=== PATIENT | male | born 1960 | race Two or more races ===

== ENCOUNTER 2021-09-30 15:06 | Inpatient (IN) | payer MEDICAID, MEDICARE, OTHER, SELFPAY ==
[~2021-09-30] VITALS: Ht 185.4 cm; Wt 112.1 kg
[2021-09-30 17:43] LABS: BASO % 0.4 % (0.0-1.0); EOS # 1.5 10^3/uL (0.0-0.5); EOS % 16.1 % (0.0-3.0); HEMATOCRIT 35.6 % (42.0-52.0); HEMOGLOBIN 11.6 g/dl (13.5-17.5); LYMPH # 1.1 10^3/uL (1.5-5.0); LYMPH % 11.3 % (24.0-44.0); MEAN CORPUSCULAR HEMOGLOBIN 34.9 pg (27.0-33.0); MEAN CORPUSCULAR HGB CONC 32.6 g/dl (32.0-36.5); MEAN CORPUSCULAR VOLUME 107.2 fl (80.0-96.0); MONO # 0.6 10^3/uL (0.0-0.8); NEUTROPHILS # 6.1 10^3/uL (1.5-8.5); NEUTROPHILS % 65.7 % (36.0-66.0); RED BLOOD COUNT 3.32 10^6/uL (4.30-6.10); WHITE BLOOD COUNT 9.4 10^3/uL (4.0-10.0)
[2021-09-30 18:04] LABS: ALBUMIN 1.7 GM/DL (3.2-5.2); ALT/SGPT 32 U/L (12-78); BILIRUBIN,DIRECT 4.7 MG/DL (0.0-0.2); BILIRUBIN,TOTAL 7.3 MG/DL (0.2-1.0); BLOOD UREA NITROGEN 20 MG/DL (7-18); CALCIUM LEVEL 8.2 MG/DL (8.8-10.2); CARBON DIOXIDE LEVEL 29 MEQ/L (21-32); CHLORIDE LEVEL 103 MEQ/L (98-107); CREATININE FOR GFR 1.07 MG/DL (0.70-1.30); GLOMERULAR FILTRATION RATE > 60.0 (>49); GLUCOSE, FASTING 76 MG/DL (70-100); LIPASE 143 U/L (73-393); POTASSIUM SERUM 4.8 MEQ/L (3.5-5.1); SODIUM LEVEL 137 MEQ/L (136-145); TOTAL PROTEIN 6.6 GM/DL (6.4-8.2)
[2021-09-30 18:11] LABS: PLATELET COUNT, AUTOMATED 60 10^3/uL (150-450)
--- NOTE | 2021-09-30 18:44 | ECGEPIP ---
[facility] - ED Test Date: 2021-09-30 Pat Name: EVANS WEINBERG Department: Room: - Gender: Male Claims Investigator: LAZARA : 1960 Requested By: Delaney Madrid Order Number: [id number] Reading MD: Mundo Kuhn Measurements Intervals Edwards Rate: 112 P: 46 NV: 190 QRS: 33 QRSD: 82 T: 55 QT: 322 QTc: 439 Interpretive Statements Sinus tachycardia with premature supraventricular complexes and with occasional premature ventricular complexes Low voltage QRS throughout Comparison tracing not on file Electronically Signed on 09-30-2021 18:43:37 EST by Mundo Kuhn
[2021-09-30] MEDS ORDERED: MORPHINE 4 MG/ML 1ML VIAL/SYRINGE (J2270) IV ONE (19:30)
[2021-09-30] MEDS ORDERED: ONDANSETRON 4MG/2ML VIAL IV ONE (19:30)
--- NOTE | 2021-09-30 19:46 | REP ---
INDICATION: SOB, wheezes COMPARISON: 12/22/2009 TECHNIQUE: Portable AP view of the chest FINDINGS: The mediastinum and cardiac silhouette are stable and within normal limits for portable technique. The lung rees are clear without acute consolidation, effusion, or pneumothorax. Skeletal structures are intact. IMPRESSION: No acute cardiopulmonary process appreciated. <Electronically signed by Larry Palencia > 09/30/21 [id number]
--- OUTSIDE RECORDS SUMMARY | 2021-09-30 19:51 | CCD ---
Author Author [facility] Organization [facility] Address Unknown Phone Unavailable Support Name Relationship Address Phone SELF EMPLOYEE Next Of Kin [address] [place] [address] SAIDA HOLLOWAY Next Of Kin [address] [place] [address] JUAN WEINBERG Next Of Kin [address] [place] [address] Re-disclosure Warning The records that you are about to access may contain information from federally-assisted alcohol or drug abuse programs. If such information is present, then the following federally mandated warning applies: This information has been disclosed to you from records protected by federal confidentiality rules (42 CFR part 2). The federal rules prohibit you from making any further disclosure of this information unless further disclosure is expressly permitted by the written consent of the person to whom it pertains or as otherwise permitted by 42 CFR part 2. A general authorization for the release of medical or other information is NOT sufficient for this purpose. The Federal rules restrict any use of the information to criminally investigate or prosecute any alcohol or drug abuse patient.The records that you are about to access may contain highly sensitive health information, the redisclosure of which is protected by Article 27-F of the [facility] Public Health law. If you continue you may have access to information: Regarding HIV / AIDS; Provided by facilities licensed or operated by the [facility] Office of Mental Health; or Provided by the [facility] Office for People With Developmental Disabilities. If such information is present, then the following [facility] mandated warning applies: This information has been disclosed to you from confidential records which are protected by state law. State law prohibits you from making any further disclosure of this information without the specific written consent of the person to whom it pertains, or as otherwise permitted by law. Any unauthorized further disclosure in violation of state law may result in a fine or skilled nursing sentence or both. A general authorization for the release of medical or other information is NOT sufficient authorization for further disc losure. Medications No Information Insurance Providers Payer name Policy type / Coverage type Policy ID Covered constitution party ID Covered constitution party's relationship to pimentel Policy Pimentel Plan Information MEDICARE [id number] SP [id number] A [employer] [id number] SP [id number] SELF PAY ONLY SP SELF PAY SP Problems, Conditions, and Diagnoses No Information Surgeries/Procedures No Information Results No Information Social History No Information
[2021-09-30] MEDS ORDERED: ISOVUE-370 76% 100ML VIAL As Ordered ONE (19:57)
[2021-09-30] MEDS ORDERED: HOME MED LIST COMPLETE! XX SCH (20:05)
[2021-09-30 20:09] LABS: INR 1.91; PROTHROMBIN TIME 22.3 SECONDS (12.7-14.5)
[2021-09-30 20:10] LABS: PARTIAL THROMBOPLASTIN TIME 47.4 SECONDS (25.9-37.0)
[2021-09-30 20:17] LABS: RSV AMPLIFICATION NEGATIVE (NEGATIVE)
--- NOTE | 2021-09-30 22:40 | REPVR ---
PROCEDURE INFORMATION: Exam: CT Abdomen And Pelvis With Contrast Exam date and time: 09/30/2021 8:50 PM Age: 61 years old Clinical indication: Bloating; Additional info: ? Ascites TECHNIQUE: Imaging protocol: Computed tomography of the abdomen and pelvis with contrast. Radiation optimization: All CT scans at this facility use at least one of these dose optimization techniques: automated exposure control; mA and/or kV adjustment per patient size (includes targeted exams where dose is matched to clinical indication); or iterative reconstruction. Contrast material: ISOVUE 370; Contrast volume: 100 ml; Contrast route: INTRAVENOUS (IV); COMPARISON: CR PORTABLE CHEST X-RAY 09/30/2021 7:31 PM FINDINGS: Lungs: Small calcified granuloma in the right lower lobe. Lung bases are otherwise clear. Liver: The liver is small with a nodular cirrhotic morphology. No liver masses are seen. Gallbladder and bile ducts: There are small calculi in the gallbladder and cystic duct. No gallbladder wall thickening or biliary duct dilation. Pancreas: Normal. No ductal dilation. Spleen: The spleen is enlarged measuring 19 cm craniocaudally. Adrenal glands: Normal. No mass. Kidneys and ureters: Unremarkable. No calculi or hydronephrosis. Stomach and bowel: There is colonic diverticulosis without evidence of diverticulitis. The small bowel is unremarkable. No bowel obstruction. Appendix: No evidence of appendicitis. Intraperitoneal space: There is a very large volume of abdominal and pelvic ascites. No pneumoperitoneum. No loculated abscess. Mild mesenteric edema. Vasculature: The portal vein is patent and appears mildly dilated. There are extensive gastroesophageal and splenic varices. No aortic aneurysm or dissection. Lymph nodes: Unremarkable. No enlarged lymph nodes. Urinary bladder: Unremarkable as visualized. Reproductive: Unremarkable as visualized. Bones/joints: Unremarkable. No acute fracture. Soft tissues: Extensive subcutaneous edema. IMPRESSION: 1. Cirrhotic liver with extensive varices, splenomegaly, and large volume of abdominal and pelvic ascites. 2. Calculi in the gallbladder and common bile duct. No biliary duct dilation. 3. Colonic diverticulosis without evidence of diverticulitis. Electronically signed by: Dereck Lomas On 09/30/2021 22:40:09 PM
[2021-10-01] VITALS (9 sets, daily range): BP systolic 107–136; BP diastolic 65–93
--- OUTSIDE RECORDS SUMMARY | 2021-10-01 00:35 | CCD ---
Author Author [facility] Organization [facility] Address Unknown Phone Unavailable Support Name Relationship Address Phone SELF EMPLOYEE Next Of Kin [address] [place] [address] SAIDA HOLLOWAY Next Of Kin [address] [place] [address] JUAN WEINBERG Next Of Kin [address] [place], [place] [id number] Re-disclosure Warning The records that you are [...] is protected by Article 27-F of the [facility] Public Health law. If you continue you may have access to information: Regarding HIV / AIDS; Provided by facilities licensed or operated by the [facility] Office of Mental Health; or Provided by the [facility] Office for People With Developmental Disabilities. If such information is present, then the following [facility] mandated warning applies: This information has been [...] law may result in a fine or shelter sentence or both. A general authorization for the release of medical or other information is NOT sufficient authorization for further disc losure. Medications No Information Insurance Providers Payer name Policy type / Coverage type Policy ID Covered constitution party ID Covered constitution party's relationship to pimentel Policy Pimentel Plan Information MEDICARE [id number] A [employer] [id number] SELF PAY ONLY SP SELF PAY SP Problems, Conditions, and Diagnoses No Information Surgeries/Procedures No Information Results No Information Social History No Information
--- NOTE | 2021-10-01 00:57 | REPVR ---
PROCEDURE INFORMATION: Exam: US Abdomen, Limited; Right Upper Quadrant Exam date and time: 10/01/2021 12:45 AM Age: 61 years old Clinical indication: Bloating; Additional info: Ascites TECHNIQUE: Imaging protocol: US abdomen. Real time ultrasound with image documentation. Limited exam focused on the right upper quadrant. COMPARISON: CT ABD/PEL W/IV CONTRAST ONLY 09/30/2021 8:47 PM FINDINGS: Liver: Cirrhotic liver morphology with nodular liver surface. No liver masses are seen. Gallbladder: Small calculi in the gallbladder lumen. No gallbladder wall thickening. Common bile duct: No biliary duct dilation. Pancreas: Visualized pancreas is unremarkable. Right kidney: Unremarkable. No mass. No hydronephrosis. Intraperitoneal space: There is a large volume of abdominal and pelvic ascites. IMPRESSION: 1. Cirrhotic liver morphology. No liver masses are seen. 2. Large volume of abdominal and pelvic ascites. 3. Cholelithiasis. No biliary duct dilation. Electronically signed by: Dereck Lomas On 10/01/2021 00:56:53 AM
--- NOTE | 2021-10-01 01:52 | HPEPDOC ---
General Date of Admission Oct 01, 2021 at 00:28 Date of Service: Sep 30, 2021 Chief Complaint The patient is a 61-year-old male admitted with a reason for visit of Abdominal Ascites,Abdominal Pain,Cirrhosis. History of Present Illness HISTORY OF PRESENT ILLNESS: This is a 61-year-old gentleman who presents to [facility] ER with a chief complaint of abdominal distention x1 month. Patient has a long history of heavy alcohol abuse where he drank 24-30 beers and half a bottle of liquor on a daily basis. He states he quit in 2008 and was sober for 6-1/2 years before he relapsed with about a third of what he drank prior. He still drinks about 12 packs of beer per day up until 1 week ago. He states that he started noticing that his abdomen is getting more extended for the past month and especially has gotten worse in the past week. Around the same time in the past week he also quit snorting cocaine and tobacco smoking. He states that his abdominal distention has made it hard for him to urinate. He also has noticed increased leg swelling up to his knees bilaterally and his weight is increased from 235 pounds to now 310 to 315 pounds within the past month. He denies any fever, chills, nausea, vomiting. He has some cough that is productive of yellow sputum which she has been taking [id number]-jvd-[id number] Mucinex which help clear out his sputum. He he has also experienced orthopnea and paroxysmal nocturnal dyspnea. Denies any recent travel or sick contacts. He states that this is the first time he has had abdominal distention and denies ever having had fluid drained from his abdomen. 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 He was a construction electrician. Quit smoking 1 week ago; prior to that started smoking at age 19 with half a pack per day and quit on and off in between. Denies using marijuana. Stores 3-4 lines of cocaine on a weekly basis or whenever he goes out to green party and drink alcohol. Relapsed alcohol use (extensive history of 24-30 beers per day with half a bottle of liquor prior to 2008. Quit in 2008 for about 6 and half years before relapsing and drink 12 packs of beer per day up until 1 week ago. No pets at home. FAMILY HISTORY: Mom . 78 years old. History of vulvar cancer. Dad . 56 years old. CHF, hypertension type 2 diabetes Sister recently from Alzheimer's. Brother recently from suicide. Major depression. REVIEW OF SYSTEMS: General: Denies fever, shaking chills, unintentional weight loss. There is significant amount of weight gain from 235 pounds to 310 pounds in the past jimmy h HEENT: Denies changes in vision including blurry vision or double vision, or hearing loss nasal congestion or sore throat. Did notice that his skin and eyes appear more yellow yellow. Heart: Denies chest pain or chest pressure or discomfort, or palpitations. Increased lower extremity edema Pulm: Cough with yellow sputum, orthopnea paroxysmal nocturnal dyspnea GI: Denies nausea vomiting diarrhea abdominal pain or bloody stools Extremities/skin: Yellowing of skin and sclera. Denies any pruiritis Psych: Denies sadness or loss of interest in doing things, no thoughts of self- harm or suicidal ideation PHYSICAL EXAM: VS: SEE BELOW GENERAL: The patient is a jaundiced looking gentleman laying in bed, no acute respiratory distress, very protuberant abdomen. AAOx3 NEURO: No focal neurological deficits. Conversational and cooperative on exam. No asterixis on exam HEENT: Head is normocephalic and atraumatic. Extraocular muscles are intact. Pupils are equal, round, and reactive to light and accommodation. Sclera icterus nares appears normal. Moist mucous membranes. CHEST: Gynecomastia noted. PULM: Wheezing is appreciated. No rhonchi, crackles, Rales. CARDIO: Normal S1, S2. No significant murmurs, gallops, rubs or clicks. 2+ pitting edema with dependent edema as well. JVD appreciated. ABDOMEN: Abdomen is very distended with ascites, with shifting dullness nontender, normal bowel sounds. I was unable to appreciate organomegaly due to his abdominal distention. EXTREMITIES/SKIN : There is a tattoo on his right arm. Patient is quite jaundiced. No cyanosis, clubbing, rash, lesions. There are venous stasis ulcers in bilateral shins. Pedal pulses checked with a Doppler machine and present bilaterally. IMAGING: CT abd/pelvis with IV ctx IMPRESSION: 1. Cirrhotic liver with extensive varices, splenomegaly, and large volume of abdominal and pelvic ascites. 2. Calculi in the gallbladder and common bile duct. No biliary duct dilation. 3. Colonic diverticulosis without evidence of diverticulitis Chest radiograph IMPRESSION: No cardiopulm process. ASSESSMENT AND PLAN: This is a 61-year-old gentleman who presents to [facility] ER with abdominal distention x1 month that is progressively gotten worse. He has a history of alcohol abuse with recent relapse. 1. Fluid overload likely 2/2 acute decompensated liver cirrhosis with ascites. 1st time occurence per patient. History of alcohol abuse with recent relapse. Modified child Jono Garcia of class C and 23 points on the meld-Na score with an approximate 14 to 15% estimated 90-day mortality/poor prognosis. Continue 2 g sodium diet with 2 L/day fluid restriction. Will order for a diagnostic and therapeutic paracentesis per IR. In the meantime we will obtain an abdominal ultrasound as well as hepatitis serologies. Paracentesis to obtain a serum albumin ascites albumin score in order for analysis (Gram stain and culture, cell count and differential, albumin and total protein. Will also obtain an echo to rule out cardiac causes of edema. Clinically patient does not display signs of hepatic encephalopathy, AAOX3. 2. Hypoalbuminemia. Consider IV albumin with large volume paracentesis per IR tomorrow. Depending on ascites fluid analysis, consider SBP prophylaxis per am team. 3. Thrombocytopenia in setting of liver cirrhosis. Likely from platelet sequestration of the spleen (splenomegaly on imaging). We will continue to closely monitor. There are no signs of bleeding currently and no indication to transfuse plt currently. 4. Cirrhotic liver with extensive varices. Patient will need follow up with GI as well as PCP after hospital discharge to be screened with EGD. Day team to consider starting him on non selective beta ever such as propranolol. 5. Hypothyroidism. We will continue with home meds 6. Alcohol abuse. Recently quit drinking 1 week ago. Will put on CIWA protocol 7. Hypertension. Med list still not reviewed per pharmacy. Can c/w home med per am team. Current bp is normotensive range. Will hold off on IV albumin and give with large volume paracentesis per day team tomorrow. DVT ppx: TEDS SCDS Home Medications No Active Prescriptions or Reported Meds Allergies Coded Allergies: No Known Allergies (Unverified , 09/30/21) GME ATTESTATION GME ATTESTATION My faculty preceptor for this patient encounter was physically present during the encounter and was fully available. All aspects of the patient interview, examination, medical decision making process, and medical care plan development were reviewed and approved by the faculty preceptor. The faculty preceptor is aware and concurs with the plan as stated in the body of this note and will attest to such by his/her cosignature. ATTENDING NOTE I, Dong Lomeli MD, have independently examined this patient and performed my own physical exam, as well as reviewed the documentation and edited where necessary. I have discussed in detail with the resident the findings and plan of treatment as documented by the residentnd edited their note. I agree with their findings and treatment plan and have edited their documentation. I will continue to follow the patient during this hospital stay. Patient is significant aminal pain without fever or white count. However due to pain and high meld score high HLP score we will start on ceftriaxone 2 g IV daily. Plan for paracentesis today. Will require SBP prophylaxis moving forward, pending ascitic fluid. Given his substantial varices, benefits of SBP ppx likely outweigh risks. Tom Carter DO Oct 01, 2021 01:32 DONG LOMELI MD Oct 01, 2021 06:42
[2021-10-01] MEDS ORDERED: HEPARIN SOD (PORCINE) 5000UNITS/ML 1ML VIAL/SYRINGE SC SCH (06:00)
[2021-10-01] MEDS ORDERED: MORPHINE 4 MG/ML 1ML VIAL/SYRINGE (J2270) IV PRN (06:40)
[2021-10-01] MEDS ORDERED: LORazepam 2 MG TAB PO PRN (06:50)
[2021-10-01] MEDS: THIAMINE 100 MG TAB PO SCH ×2 (08:11→20:45)
[2021-10-01] MEDS: FOLIC ACID 1 MG TAB PO SCH (08:11)
[2021-10-01] MEDS: MULTIVITAMINS/MINERALS THERAP 1 TAB PO SCH (08:11)
[2021-10-01] MEDS: cefTRIAXone SOD 2 GM in D5W MINI-BAG PLUS 50 ML IV SCH (08:12)
[2021-10-01 08:18] LABS: HEMATOCRIT 34.5 % (42.0-52.0); HEMOGLOBIN 11.2 g/dl (13.5-17.5); MEAN CORPUSCULAR HEMOGLOBIN 34.7 pg (27.0-33.0); MEAN CORPUSCULAR HGB CONC 32.5 g/dl (32.0-36.5); MEAN CORPUSCULAR VOLUME 106.8 fl (80.0-96.0); RED BLOOD COUNT 3.23 10^6/uL (4.30-6.10); WHITE BLOOD COUNT 12.2 10^3/uL (4.0-10.0)
[2021-10-01 08:19] LABS: PLATELET COUNT, AUTOMATED 70 10^3/uL (150-450)
[2021-10-01 09:05] LABS: ALBUMIN 1.6 GM/DL (3.2-5.2); ALT/SGPT 31 U/L (12-78); BLOOD UREA NITROGEN 23 MG/DL (7-18); CALCIUM LEVEL 7.7 MG/DL (8.8-10.2); CARBON DIOXIDE LEVEL 26 MEQ/L (21-32); CHLORIDE LEVEL 105 MEQ/L (98-107); CREATININE FOR GFR 0.79 MG/DL (0.70-1.30); GLOMERULAR FILTRATION RATE > 60.0 (>49); GLUCOSE, FASTING 97 MG/DL (70-100); POTASSIUM SERUM 5.6 MEQ/L (3.5-5.1); SODIUM LEVEL 135 MEQ/L (136-145); TOTAL PROTEIN 6.3 GM/DL (6.4-8.2)
[2021-10-01] MEDS ORDERED: INFLUENZA QUADRIVALENT PF VACCINE 0.5ML SYRINGE IM ONE (09:45)
[2021-10-01 11:52] LABS: HEPATITIS B SURFACE ANTIGEN NEGATIVE (NEGATIVE)
[2021-10-01 12:21] LABS: HEPATITIS B CORE ANTIBODY IGM NEGATIVE (NEGATIVE)
[2021-10-01] MEDS: FUROSEMIDE 40MG/4ML VIAL (J1940) IV SCH (12:22)
[2021-10-01 12:24] LABS: HEPATITIS C VIRUS ABY INDEX > 11.0 INDEX (<0.8)
--- NOTE | 2021-10-01 12:49 | IPNPDOC ---
Text Note Date of Service The patient was seen on 10/01/21. NOTE Patient seen this a.m. Has massive ascites with bipedal swelling. Complaining of abdominal discomfort. Patient reports his last alcohol intake was 5 to 6 days ago. He reports that he does not have any withdrawal symptoms if he does not drink. No signs of withdrawal at this time. He is scheduled for paracentesis diagnostic and therapeutic today. Will order for units of 25% albumin to be given after paracentesis. We will also start him on Lasix. Potassium is a little high but that is better will start on spironolactone. Has thrombocytopenia likely due to cirrhosis of liver. Ammonia is elevated however no signs of hepatic encephalopathy. Patient alert oriented x3. VS,Fishbone, I+O VS, Fishbone, I+O Laboratory Tests 09/30/21 17:24 10/01/21 08:07 Vital Signs Date Time Temp Pulse Resp B/P (MAP) Pulse Ox O2 Delivery O2 Flow Rate FiO2 10/01/21 12:25 98.3 120 18 110/86 94 Room Air 10/01/21 04:22 2.0 Yanira Zimmer MD Oct 01, 2021 12:49
--- NOTE | 2021-10-01 15:46 | ECHO ---
ECHOCARDIOGRAM DATE OF PROCEDURE: 10/01/2021 Age: 61 Gender: Male Height: 73 inches Weight: 315 pounds Body mass index: 2.61 m2 PATIENT LOCATION: Inpatient, [address] [place] [address], Room 5131. REFERRING PROVIDER: Tom Carter D.O. INDICATION: Edema MEASUREMENTS: 2D Measurements: RV - 4.4 cm LV - 4.1 cm Septum 1.2 cm Posterior wall 1.2 cm Aortic root 4.0 cm LA - 4.4 cm LVEF 75% Doppler Measurements: AV - 0.9 m/sec LVOT - 0.6 m/sec LVOT diameter 1.9 cm MV-E 40, A 64, EA ratio 0.6 Early mitral deceleration time 145 msec E prime medial 17 A prime medial 23 E prime lateral 13 PV - 0.7 m/sec Pulmonary artery acceleration time 85 msec RVSP - 43 mmHg IVC - 2.4 cm COMMENTS: Sinus tachycardia without intraventricular conduction disturbance. Frequent isolated premature atrial contractions (PACs). Technically very difficult study in light of the patient's body habitus, but some diagnostically useful information was still obtained. Left ventricle appeared to be borderline hypertrophied with hyperkinetic wall motion, but could not identify any clear-cut regional wall motion abnormality for technical reasons. Mildly dilated left atrium with grade 1 left ventricular (LV) diastolic dysfunction, but currently normal mean left atrial pressure. At least mild and possibly moderately dilated right heart chambers with adequate right ventricular free wall motion and Doppler evidence of at least moderate pulmonary hypertension. Dilated inferior vena cava (IVC) with reduced respiratory collapse in keeping with right heart failure. Slightly dilated aortic root and ascending aorta. Details of aortic valve were not well visualized, but there did not appear to be any functional abnormality. Slightly thickened mitral valvular apparatus with adequate leaflet excursion and no posterior systolic buckling. No apparent functional valvula abnormality. The tricuspid valve was not well visualized. Could not detect any intracardiac mass, but as mentioned, technically very difficult study. No pericardial effusion.
--- NOTE | 2021-10-01 16:36 | REP ---
INDICATION: swelling COMPARISON: None. TECHNIQUE: Lanier scale and color Doppler evaluation using linear high frequency transducer. FINDINGS: Ultrasound examination of the right and left lower extremity deep venous structures from the common femoral vein through the popliteal vein demonstrates normal compressibility, flow and wave patterns in response to respiration and augmentation. Evaluation of the bilateral calf veins is incomplete due to subcutaneous edema and technical factors. There is no evidence for deep venous thrombosis. IMPRESSION: No evidence for deep venous thrombosis. <Electronically signed by Larry Palencia > 10/01/21 [id number]
[2021-10-01] MEDS ORDERED: SPIRONOLACTONE 25 MG TAB PO SCH (17:00)
--- NOTE | 2021-10-01 17:09 | REP ---
INDICATION: ascites. COMPARISON: None. TECHNIQUE: The procedure was performed under the direct supervision of Dr. Landa. The risks and benefits of the procedure were explained to the patient and informed consent was obtained. The largest pocket of fluid was localized in the left flank using ultrasound guidance. The skin was prepped and draped in a sterile fashion. 5 mL of 1% lidocaine was used as a local anesthetic. An 8-Macedonian multi side-hole catheter was inserted using trocar technique.[id number] mL of erlinda colored fluid was withdrawn with a sample sent to the lab for analysis. Estimated blood loss: Less than 1 mL The patient tolerated the procedure well and there were no immediate complications. After the appropriate amount of monitored convalescence, the patient was discharged from the department. FINDINGS: None IMPRESSION: Ultrasound-guided paracentesis [id number] mL of erlinda colored fluid. <Electronically signed by Jayme Soler > 10/01/21 2501 <Electronically signed by Loco Landa > 10/01/21 2998
[2021-10-01 17:13] LABS: SPEC. GRAVITY BODY FLUIDS 1.007 (NOT ESTABLISHED)
[2021-10-01 17:37] LABS: SOURCE, BODY FLUID ASCITES
[2021-10-01 17:38] LABS: APPEARANCE, BODY FLUID CLOUDY (CLEAR); ASCITES FL COLOR YELLOW (COLORLESS)
[2021-10-01 18:28] LABS: SOURCE, BODY FLUID ALBUMIN ASCITES; SOURCE, BODY FLUID GLUCOSE ASCITES; SOURCE, BODY FLUID TOT PROTEIN ASCITES; TOTAL PROTEIN, BODY FLUID 0.4 G/DL (NOT ESTABLISHED)
[2021-10-01] MEDS: ACETAMINOPHEN TAB 650MG DOSE (2X325MG) PO PRN (20:45)
[2021-10-02] VITALS (10 sets, daily range): BP systolic 91–129; BP diastolic 53–92
[2021-10-02 06:51] LABS: HEMATOCRIT 33.1 % (42.0-52.0); HEMOGLOBIN 10.5 g/dl (13.5-17.5); MEAN CORPUSCULAR HEMOGLOBIN 34.1 pg (27.0-33.0); MEAN CORPUSCULAR HGB CONC 31.7 g/dl (32.0-36.5); MEAN CORPUSCULAR VOLUME 107.5 fl (80.0-96.0); RED BLOOD COUNT 3.08 10^6/uL (4.30-6.10); WHITE BLOOD COUNT 7.8 10^3/uL (4.0-10.0)
[2021-10-02 07:02] LABS: PLATELET COUNT, AUTOMATED 58 10^3/uL (150-450)
[2021-10-02 07:13] LABS: ALBUMIN 1.7 GM/DL (3.2-5.2); ALT/SGPT 28 U/L (12-78); BILIRUBIN,TOTAL 5.3 MG/DL (0.2-1.0); BLOOD UREA NITROGEN 22 MG/DL (7-18); CALCIUM LEVEL 7.9 MG/DL (8.8-10.2); CARBON DIOXIDE LEVEL 27 MEQ/L (21-32); CHLORIDE LEVEL 105 MEQ/L (98-107); CREATININE FOR GFR 0.61 MG/DL (0.70-1.30); GLOMERULAR FILTRATION RATE > 60.0 (>49); GLUCOSE, FASTING 89 MG/DL (70-100); POTASSIUM SERUM 4.4 MEQ/L (3.5-5.1); SODIUM LEVEL 135 MEQ/L (136-145)
[2021-10-02] MEDS: SPIRONOLACTONE 25 MG TAB PO SCH ×2 (09:00→18:12)
[2021-10-02] MEDS ORDERED: INFLUENZA QUADRIVALENT PF VACCINE 0.5ML SYRINGE IM ONE (09:00)
[2021-10-02] MEDS: cefTRIAXone SOD 2 GM in D5W MINI-BAG PLUS 50 ML IV SCH (09:03)
[2021-10-02] MEDS: MULTIVITAMINS/MINERALS THERAP 1 TAB PO SCH (09:04)
[2021-10-02] MEDS: THIAMINE 100 MG TAB PO SCH ×2 (09:04→20:38)
[2021-10-02] MEDS: FOLIC ACID 1 MG TAB PO SCH (09:04)
[2021-10-02] MEDS: FUROSEMIDE 40MG/4ML VIAL (J1940) IV SCH (09:04)
--- NOTE | 2021-10-02 12:22 | IPNPDOC ---
Subjective Date Seen The patient was seen on 10/02/21. Subjective Chief Complaint/HPI Feels more comfortable today and able to sit up it is food and does not have any trouble breathing. Though he says that his legs are more swollen. His belly is less tight though still very distended. No fever or chills. Alert and oriented. Objective Physical Examination General Exam: Positive: Alert, Cooperative, No Acute Distress Eye Exam: Positive: PERRLA, Conjunctiva & lids normal, Sclera icteric Chest Exam: Positive: Clear to auscultation Heart Exam: Positive: Rate Normal, Regular Rhythm, Normal S1, Normal S2; Negative: Murmurs, Rubs Abdomen Exam: Positive: Normal bowel sounds, Soft, Other (Distended with massive ascites) Extremity Exam: Positive: Edema (4+ bipedal edema) Skin Exam: Positive: Other skin issue (Chronic bilateral venous stasis changes in both the legs) Neuro Exam: Positive: Normal Speech, Strength at 5/5 X4 ext, Normal Tone, Other (No flap) Psych Exam: Positive: Memory Intact, Oriented x 3 Assessment /Plan Assessment This is a 61-year-old alcoholic, substance use ( Cocaine), smoker, with past medical history of hypertension, hypothyroidism, peripheral neuropathy with chronic pain, cirrhosis of liver, erectile dysfunction, male who presented to [facility] ER with a chief complaint of abdominal distention x1 month associated with increasing leg swelling. His weight has increased by 80 Lbs in 1 month. He was admitted for decompensated alcoholic cirrhosis. Decompensated alcoholic cirrhosis with extensive gastroesophageal and splenic varices, thrombocytopenia, coagulopathy, massive ascites Status post large-volume paracentesis with removal of 13.2 L with albumin Continue Lasix and spironolactone Daily weights, 2 g sodium diet, fluid restriction 1.8 L We will give vitamin K to see if that helps with the coagulopathy Spontaneous bacterial peritonitis Acetic fluid with increased WBCs neutrophilic Continue ceftriaxone Elevated ammonia No signs of hepatic encephalopathy at this time We will put on maintenance lactulose Cholestatic jaundice Likely due to cirrhosis of liver No CBD obstruction seen in CT abdomen and pelvis Diverticulosis and cholelithiasis in the gallbladder and cystic duct Seen in CT [place] No acute issues Alcoholic Will watch for alcohol withdrawal Continue CIWA Continue thiamine folate and multivitamin History of hypertension However blood pressure here he is in normal range Patient does not have a PMD and has not been taking any meds at home History of hypothyroid Plan/VTE VTE Prophylaxis Ordered?: Yes VS, I&O, 24H, Fishbone Vital Signs/I&O Vital Signs Date Time Temp Pulse Resp B/P (MAP) Pulse Ox O2 Delivery O2 Flow Rate FiO2 10/02/21 11:55 98.4 104 18 114/68 95 Room Air 10/01/21 04:22 2.0 I&O- Last 24 Hours up to 6 AM 10/02/21 06:00 Intake Total 2200.0 ml Output Total 500 ml Balance 1700.0 ml Laboratory Data 24H LABS Laboratory Tests 2 10/01/21 15:00: Body Fluid Source ASCITES, Body Fluid Color YELLOW, Body Fluid Appearance CLOUDY, Body Fluid Specific [place] 1.007, Body Fluid WBC (Auto) 3129H, Body Fluid RBC (Auto) < 2, Body Fluid Mononuclear Cells % Auto 7.5H, Fluid Polymorphonuclear Cell % Auto 92.5H, Body Fluid Glucose Source ASCITES, Body Fluid Glucose 91, Body Fluid Protein Source ASCITES, Body Fluid Total Protein 0.4, Body Fluid Albumin Source ASCITES, Body Fluid Albumin 0.0 10/01/21 16:49: Bedside Glucose (Misc Panel) 102 10/01/21 20:23: Bedside Glucose (Misc Panel) 99 10/02/21 06:27: Nucleated Red Blood Cells % (auto) 0.0, Immature Platelet Fraction 4.5, Anion Gap 3L, Glomerular Filtration Rate > 60.0, Calcium Level 7.9L, Total Bilirubin 5.3H, Aspartate Amino Transf (AST/SGOT) 47H, Alanine Aminotransferase (ALT/SGPT) 28, Alkaline Phosphatase 123H, Total Protein 6.0L, Albumin 1.7L, Albumin/Globulin Ratio 0.4 10/02/21 11:56: Bedside Glucose (Misc Panel) 104 CBC/BMP Laboratory Tests 10/02/21 06:27 Microbiology Microbiology 10/01/21 Gram Stain - Final, Resulted 10/01/21 Body Fluid Culture, Resulted Pending Yanira Zimmer MD Oct 02, 2021 12:22
[2021-10-02] MEDS: LACTULOSE 20 GM/30 ML SYRUP UD PO SCH ×2 (14:30→20:38)
[2021-10-02] MEDS ORDERED: FUROSEMIDE 40MG/4ML VIAL (J1940) IV SCH (17:00)
[2021-10-03 06:00] VITALS: BP 109/61
[2021-10-03 06:14] LABS: HEMATOCRIT 29.4 % (42.0-52.0); HEMOGLOBIN 9.4 g/dl (13.5-17.5); MEAN CORPUSCULAR HEMOGLOBIN 34.1 pg (27.0-33.0); MEAN CORPUSCULAR VOLUME 106.5 fl (80.0-96.0); RED BLOOD COUNT 2.76 10^6/uL (4.30-6.10); WHITE BLOOD COUNT 4.7 10^3/uL (4.0-10.0)
[2021-10-03 06:15] LABS: PLATELET COUNT, AUTOMATED 50 10^3/uL (150-450)
[2021-10-03 06:40] VITALS: BP 109/61
[2021-10-03 07:35] LABS: ALBUMIN 1.9 GM/DL (3.2-5.2); ALT/SGPT 26 U/L (12-78); BILIRUBIN,TOTAL 3.8 MG/DL (0.2-1.0); BLOOD UREA NITROGEN 16 MG/DL (7-18); CALCIUM LEVEL 7.6 MG/DL (8.8-10.2); CARBON DIOXIDE LEVEL 32 MEQ/L (21-32); CHLORIDE LEVEL 101 MEQ/L (98-107); FERRITIN 208 NG/ML (26-388); GLOMERULAR FILTRATION RATE > 60.0 (>49); GLUCOSE, FASTING 111 MG/DL (70-100); IRON (FE) 29 UG/DL (65-175); PERCENT SATURATION 23.8 % (19.7-50.0); POTASSIUM SERUM 3.4 MEQ/L (3.5-5.1); SODIUM LEVEL 137 MEQ/L (136-145); TOTAL IRON BINDING CAPACITY 122 UG/DL (250-450); TOTAL PROTEIN 5.5 GM/DL (6.4-8.2)
[2021-10-03] MEDS: LACTULOSE 20 GM/30 ML SYRUP UD PO SCH ×2 (08:11→21:06)
[2021-10-03] MEDS: cefTRIAXone SOD 2 GM in D5W MINI-BAG PLUS 50 ML IV SCH (08:11)
[2021-10-03] MEDS: FUROSEMIDE 40 MG TAB PO SCH ×2 (08:11→17:10)
[2021-10-03] MEDS: SPIRONOLACTONE 25 MG TAB PO SCH ×2 (08:11→17:10)
[2021-10-03] MEDS: MULTIVITAMINS/MINERALS THERAP 1 TAB PO SCH (08:11)
[2021-10-03] MEDS: FOLIC ACID 1 MG TAB PO SCH (08:11)
[2021-10-03] MEDS: THIAMINE 100 MG TAB PO SCH ×2 (08:11→21:06)
[2021-10-03] MEDS: ACETAMINOPHEN TAB 650MG DOSE (2X325MG) PO PRN ×2 (08:12→21:06)
[2021-10-03 08:40] LABS: VITAMIN B12 LEVEL 1628 PG/ML
[2021-10-03 08:41] LABS: FOLATE 6.4 NG/ML
[2021-10-03] MEDS ORDERED: oxyCODONE 5MG TAB PO ONE (10:20)
--- NOTE | 2021-10-03 12:47 | IPNPDOC ---
Subjective Date Seen The patient was seen on 10/03/21. Subjective Chief Complaint/HPI Continues to have severe abdominal distention with severe stretching and discomfort. Reports that he has not been able to sleep at all last night has been tossing and turning all night long. He feels that his knees and thighs are little less swollen. However both of his legs are still extremely swollen and are leaking fluids Objective Physical Examination General Exam: Positive: Alert, Cooperative, No Acute Distress Eye Exam: Positive: PERRLA, Conjunctiva & lids normal, Sclera icteric Chest Exam: Positive: Clear to auscultation Heart Exam: Positive: Rate Normal, Regular Rhythm, Normal S1, Normal S2; Negative: Murmurs, Rubs Abdomen Exam: Positive: Normal bowel sounds, Soft, Other (Distended with mass yanni ascites) Extremity Exam: Positive: Edema (4+ bipedal edema) Skin Exam: Positive: Other skin issue (Chronic bilateral venous stasis changes in both the legs) Neuro Exam: Positive: Normal Speech, Strength at 5/5 X4 ext, Normal Tone, Other (No flap) Psych Exam: Positive: Memory Intact, Oriented x 3 Assessment /Plan Assessment This is a 61-year-old alcoholic, substance use ( Cocaine), smoker, with past medical history of hypertension, hypothyroidism, peripheral neuropathy with chronic pain, cirrhosis of liver, erectile dysfunction, male who presented to [facility] ER with a chief complaint of abdominal distention x1 month associated with increasing leg swelling. His weight has increased by 80 Lbs in 1 month. He was admitted for decompensated alcoholic cirrhosis. Decompensated alcoholic cirrhosis with extensive gastroesophageal and splenic varices, thrombocytopenia, coagulopathy, massive ascites Status post large-volume paracentesis with removal of 13.2 L with albumin Continue Lasix and spironolactone Daily weights, 2 g sodium diet, fluid restriction 1.8 L We will give vitamin K to see if that helps with the coagulopathy We will give some oxycodone as needed to help with pain and discomfort of the abdomen. Spontaneous bacterial peritonitis Ascitic fluid with increased WBCs neutrophilic Fluid cultures has been negative however this was sent after patient was already started on antibiotic Continue ceftriaxone Elevated ammonia No signs of hepatic encephalopathy at this time On maintenance lactulose Having 2-3 bowel movements a day Cholestatic jaundice Likely due to cirrhosis of liver No CBD obstruction seen in CT abdomen and pelvis Diverticulosis and cholelithiasis in the gallbladder and cystic duct Seen in CT [place] No acute issues Alcoholic Will watch for alcohol withdrawal Continue CIWA Continue thiamine folate and multivitamin History of hypertension However blood pressure here he is in normal range Patient does not have a PMD and has not been taking any meds at home History of hypothyroid Plan/VTE VTE Prophylaxis Ordered?: Yes VS, I&O, 24H, Fishbone Vital Signs/I&O Vital Signs Date Time Temp Pulse Resp B/P (MAP) Pulse Ox O2 Delivery O2 Flow Rate FiO2 10/03/21 10:31 18 Nasal Cannula 10/03/21 06:40 112 109/61 10/03/21 06:00 98.3 96 2.0 I&O- Last 24 Hours up to 6 AM 10/03/21 05:59 Intake Total 800.0 ml Output Total 1800 ml Balance -1000.0 ml Laboratory Data 24H LABS Laboratory Tests 2 10/02/21 17:02: Bedside Glucose (Misc Panel) 116H 10/02/21 20:50: Bedside Glucose (Misc Panel) 108 10/03/21 05:28: Nucleated Red Blood Cells % (auto) 0.0, Anion Gap 4L, Glomerular Filtration Rate > 60.0, Calcium Level 7.6L, Iron Level 29L, Total Iron Binding Capacity 122L, Transferrin % Saturation 23.8, Ferritin 208, Total Bilirubin 3.8H, Aspartate Amino Transf (AST/SGOT) 44H, Alanine Aminotransferase (ALT/SGPT) 26, Alkaline Phosphatase 123H, Ammonia 93H, Total Protein 5.5L, Albumin 1.9L, Albumin/Globulin Ratio 0.5, Vitamin B12 Level 1628, Folate 6.4 10/03/21 11:49: Bedside Glucose (Misc Panel) 99 CBC/BMP Laboratory Tests 10/03/21 05:28 Microbiology Microbiology 10/01/21 Gram Stain - Final, Complete 10/01/21 Body Fluid Culture - Final, Complete Yanira Zimmer MD Oct 03, 2021 12:47
[2021-10-03] MEDS: PHYTONADIONE 5 MG TAB PO SCH (13:15)
[2021-10-03 14:00] VITALS: BP_SYST 112; BP_SYST 132; BP_DIAS 62; BP_DIAS 77
--- NOTE | 2021-10-03 17:56 | REP ---
INDICATION: massive ascites. COMPARISON: None. TECHNIQUE: The procedure was performed under the direct supervision of Dr. Landa. The risks and benefits of the procedure were explained to the patient and informed consent was obtained. The largest pocket of fluid was localized in the left flank using ultrasound guidance. The skin was prepped and draped in a sterile fashion. 6 mL of 1% lidocaine was used as a local anesthetic. An 8-Irish multi side-hole catheter was inserted using trocar technique.19667 mL of yellow fluid was withdrawn and discarded. Estimated blood loss: Less than 1 mL The patient tolerated the procedure well and there were no immediate complications. After the appropriate amount of monitored convalescence, the patient was discharged from the department. FINDINGS: None IMPRESSION: Ultrasound-guided paracentesis [id number] mL of yellow fluid. <Electronically signed by Jayme Soler > 10/03/21 1701 <Electronically signed by Loco Landa > 10/03/21 [id number]
[2021-10-03 20:00] VITALS: BP 112/58
--- NOTE | 2021-10-03 21:54 | ECGEPIP ---
[facility] Test Date: 2021-10-02 Pat Name: EVANS WEINBERG Department: Room: [place] [address] Gender: Male [employer] Vehicle [employer]: [birth year] : 1960 Requested By: Yanira Zimmer Order Number: [id number] Reading MD: Willy Don Measurements Intervals [place] Rate: 108 P: 83 LA: 196 QRS: 33 QRSD: 84 T: 55 QT: 338 QTc: 452 Interpretive Statements Sinus tachycardia with premature supraventricular complexes Low voltage QRS Cannot rule out Anterior infarct , age undetermined vs poor R wave pregression Last tracing on 09/30/21 at 17:24 No remarkable changes Electronically Signed on 10-03-2021 21:53:52 EST by Willy Don
[2021-10-03 22:00] VITALS: BP 112/58
[2021-10-04] VITALS (13 sets, daily range): BP systolic 113–131; BP diastolic 68–78
[2021-10-04 06:00] LABS: HEMATOCRIT 31.1 % (42.0-52.0); HEMOGLOBIN 10.2 g/dl (13.5-17.5); MEAN CORPUSCULAR HEMOGLOBIN 34.6 pg (27.0-33.0); MEAN CORPUSCULAR HGB CONC 32.8 g/dl (32.0-36.5); MEAN CORPUSCULAR VOLUME 105.4 fl (80.0-96.0); RED BLOOD COUNT 2.95 10^6/uL (4.30-6.10)
[2021-10-04 06:04] LABS: PLATELET COUNT, AUTOMATED 51 10^3/uL (150-450)
[2021-10-04 06:21] LABS: ALT/SGPT 28 U/L (12-78); BILIRUBIN,TOTAL 3.8 MG/DL (0.2-1.0); BLOOD UREA NITROGEN 15 MG/DL (7-18); CALCIUM LEVEL 7.8 MG/DL (8.8-10.2); CARBON DIOXIDE LEVEL 32 MEQ/L (21-32); CHLORIDE LEVEL 100 MEQ/L (98-107); CREATININE FOR GFR 0.57 MG/DL (0.70-1.30); GLOMERULAR FILTRATION RATE > 60.0 (>49); GLUCOSE, FASTING 88 MG/DL (70-100); POTASSIUM SERUM 3.5 MEQ/L (3.5-5.1); SODIUM LEVEL 136 MEQ/L (136-145); TOTAL PROTEIN 5.9 GM/DL (6.4-8.2)
[2021-10-04] MEDS: FOLIC ACID 1 MG TAB PO SCH (08:20)
[2021-10-04] MEDS: LACTULOSE 20 GM/30 ML SYRUP UD PO SCH ×2 (08:20→20:29)
[2021-10-04] MEDS: cefTRIAXone SOD 2 GM in D5W MINI-BAG PLUS 50 ML IV SCH (08:20)
[2021-10-04] MEDS: SPIRONOLACTONE 25 MG TAB PO SCH ×2 (08:20→17:05)
[2021-10-04] MEDS: MULTIVITAMINS/MINERALS THERAP 1 TAB PO SCH (08:21)
[2021-10-04] MEDS: FUROSEMIDE 40 MG TAB PO SCH (08:21)
[2021-10-04] MEDS: PHYTONADIONE 5 MG TAB PO SCH (08:21)
--- NOTE | 2021-10-04 12:55 | IPNPDOC ---
Subjective Date Seen The patient was seen on 10/04/21. Subjective Chief Complaint/HPI StopPatient had a second paracentesis on 10/03/2021 with removal of greater than 10 L of fluid this morning he is belly is comfortable and he does not feel the pressure tach much. He says his thighs and knees are softer and is able to bend his knees. He still has a lot of swelling in his legs and there is leakage of fluid from his legs. Objective Physical Examination General Exam: Positive: Alert, Cooperative, No Acute Distress Eye Exam: Positive: PERRLA, Conjunctiva & lids normal, Sclera icteric Chest Exam: Positive: Clear to auscultation Heart Exam: Positive: Rate Normal, Regular Rhythm, Normal S1, Normal S2; Negative: Murmurs, Rubs Abdomen Exam: Positive: Normal bowel sounds, Soft, Other (Distended with massive ascites) Extremity Exam: Positive: Edema (4+ bipedal edema) Skin Exam: Positive: Other skin issue (Chronic bilateral venous stasis changes in both the legs) Neuro Exam: Positive: Normal Speech, Strength at 5/5 X4 ext, Normal Tone, Other (No flap) Psych Exam: Positive: Memory Intact, Oriented x 3 Assessment /Plan Assessment This is a 61-year-old alcoholic, substance use ( Cocaine), smoker, with past medical history of hypertension, hypothyroidism, peripheral neuropathy with chronic pain, cirrhosis of liver, erectile dysfunction, male who presented to [facility] ER with a chief complaint of abdominal distention x1 month associated with increasing leg swelling. His weight has increased by 80 Lbs in 1 month. He was admitted for decompensated alcoholic cirrhosis. Decompensated alcoholic cirrhosis with extensive gastroesophageal and splenic varices, thrombocytopenia, coagulopathy, massive ascites Status post large-volume paracentesis with removal of 13.2 L with albumin on 10/01/2021, second paracentesis on 10/03/2021 with removal of 10.5 L again with albumin. Continue Lasix and spironolactone Daily weights, 2 g sodium diet, fluid restriction 1.8 L We will give vitamin K to see if that helps with the coagulopathy Spontaneous bacterial peritonitis Ascitic fluid with increased WBCs neutrophilic Fluid cultures has been negative however this was sent after patient was already started on antibiotic Continue ceftriaxone Elevated ammonia No signs of hepatic encephalopathy at this time On maintenance lactulose Having 2-3 bowel movements a day Cholestatic jaundice Likely due to cirrhosis of liver No CBD obstruction seen in CT abdomen and pelvis Hepatitis C infection Patient will need to follow-up with the ID as an outpatient for treatment. Diverticulosis and cholelithiasis in the gallbladder and cystic duct Seen in CT [place] No acute issues Alcoholic Continue thiamine folate and multivitamin History of hypertension Blood pressure has been normal in the hospital History of hypothyroid Plan/VTE VTE Prophylaxis Ordered?: Yes VS, I&O, 24H, Fishbone Vital Signs/I&O Vital Signs Date Time Temp Pulse Resp B/P (MAP) Pulse Ox O2 Delivery O2 Flow Rate FiO2 10/04/21 08:32 98.7 95 17 128/73 Room Air 10/04/21 07:20 100 10/04/21 06:00 2.0 I&O- Last 24 Hours up to 6 AM 10/04/21 06:00 Intake Total 730.0 ml Output Total 1070 ml Balance -340.0 ml Laboratory Data 24H LABS Laboratory Tests 2 10/03/21 17:39: Bedside Glucose (Misc Panel) 111 10/03/21 21:41: Bedside Glucose (Misc Panel) 95 10/04/21 05:22: Nucleated Red Blood Cells % (auto) 0.5H, Immature Platelet Fraction 3.6, Anion Gap 4L, Glomerular Filtration Rate > 60.0, Calcium Level 7.8L, Total Bilirubin 3.8H, Aspartate Amino Transf (AST/SGOT) 45H, Alanine Aminotransferase (ALT/SGPT) 28, Alkaline Phosphatase 126H, Total Protein 5.9L, Albumin 2.0L, Albumin/Globulin Ratio 0.5 10/04/21 11:19: Bedside Glucose (Misc Panel) 110 CBC/BMP Laboratory Tests 10/04/21 05:22 Microbiology Microbiology 10/01/21 Gram Stain - Final, Complete 10/01/21 Body Fluid Culture - Final, Complete Yanira Zimmer MD Oct 04, 2021 12:55
[2021-10-04] MEDS: FUROSEMIDE 40MG/4ML VIAL (J1940) IV SCH (17:05)
[2021-10-05 06:00] VITALS: BP 113/52
[2021-10-05 07:23] LABS: HEMATOCRIT 31.3 % (42.0-52.0); HEMOGLOBIN 10.4 g/dl (13.5-17.5); MEAN CORPUSCULAR HEMOGLOBIN 34.3 pg (27.0-33.0); MEAN CORPUSCULAR HGB CONC 33.2 g/dl (32.0-36.5); MEAN CORPUSCULAR VOLUME 103.3 fl (80.0-96.0); RED BLOOD COUNT 3.03 10^6/uL (4.30-6.10); WHITE BLOOD COUNT 4.5 10^3/uL (4.0-10.0)
[2021-10-05 07:25] LABS: PLATELET COUNT, AUTOMATED 46 10^3/uL (150-450)
[2021-10-05 07:36] LABS: INR 2.03; PROTHROMBIN TIME 23.3 SECONDS (12.7-14.5)
[2021-10-05 07:37] LABS: PARTIAL THROMBOPLASTIN TIME 48.9 SECONDS (25.9-37.0)
[2021-10-05 07:47] LABS: ALBUMIN 2.2 GM/DL (3.2-5.2); ALT/SGPT 26 U/L (12-78); BLOOD UREA NITROGEN 13 MG/DL (7-18); CALCIUM LEVEL 7.7 MG/DL (8.8-10.2); CARBON DIOXIDE LEVEL 32 MEQ/L (21-32); CHLORIDE LEVEL 100 MEQ/L (98-107); CREATININE FOR GFR 0.53 MG/DL (0.70-1.30); GLOMERULAR FILTRATION RATE > 60.0 (>49); GLUCOSE, FASTING 77 MG/DL (70-100); POTASSIUM SERUM 3.3 MEQ/L (3.5-5.1); SODIUM LEVEL 138 MEQ/L (136-145); TOTAL PROTEIN 5.8 GM/DL (6.4-8.2)
[2021-10-05] MEDS: FUROSEMIDE 40MG/4ML VIAL (J1940) IV SCH ×3 (08:58→20:15)
[2021-10-05] MEDS: cefTRIAXone SOD 2 GM in D5W MINI-BAG PLUS 50 ML IV SCH (08:58)
[2021-10-05] MEDS: LACTULOSE 20 GM/30 ML SYRUP UD PO SCH ×2 (08:58→20:15)
[2021-10-05] MEDS: SPIRONOLACTONE 50 MG TAB PO SCH ×2 (08:59→17:13)
[2021-10-05] MEDS: PHYTONADIONE 5 MG TAB PO SCH (08:59)
[2021-10-05] MEDS: FOLIC ACID 1 MG TAB PO SCH (08:59)
[2021-10-05] MEDS: MULTIVITAMINS/MINERALS THERAP 1 TAB PO SCH (08:59)
[2021-10-05] MEDS: ACETAMINOPHEN TAB 650MG DOSE (2X325MG) PO PRN (09:00)
[2021-10-05] MEDS ORDERED: oxyCODONE 5MG TAB PO PRN (12:45)
--- NOTE | 2021-10-05 12:46 | IPNPDOC ---
Subjective Date Seen The patient was seen on 10/05/21. Subjective Chief Complaint/HPI Continues to have massive fluid overload with seepage of fluid from the legs though less and also fluid leaking from the paracentesis spot. I have updated his regarding patient's condition. Continues to have severe abdominal pain and discomfort from the distension. Objective Physical Examination General Exam: Positive: Alert, Cooperative, No Acute Distress Eye Exam: Positive: PERRLA, Conjunctiva & lids normal, Sclera icteric Chest Exam: Positive: Clear to auscultation Heart Exam: Positive: Rate Normal, Regular Rhythm, Normal S1, Normal S2; Negative: Murmurs, Rubs Abdomen Exam: Positive: Normal bowel sounds, Soft, Other (Distended with massive ascites) Extremity Exam: Positive: Edema (4+ bipedal edema) Skin Exam: Positive: Other skin issue (Chronic bilateral venous stasis changes in both the legs) Neuro Exam: Positive: Normal Speech, Strength at 5/5 X4 ext, Normal Tone, Other (No flap) Psych Exam: Positive: Memory Intact, Oriented x 3 Assessment /Plan Assessment This is a 61-year-old alcoholic, substance use ( Cocaine), smoker, with past medical history of hypertension, hypothyroidism, peripheral neuropathy with chronic pain, cirrhosis of liver, erectile dysfunction, male who presented to [facility] ER with a chief complaint of abdominal distention x1 month associated with increasing leg swelling. His weight has increased by 80 Lbs in 1 month. He was admitted for decompensated alcoholic cirrhosis. Decompensated alcoholic cirrhosis with extensive gastroesophageal and splenic varices, thrombocytopenia, coagulopathy, massive ascites Status post large-volume paracentesis with removal of 13.2 L with albumin on 10/01/2021, second paracentesis on 10/03/2021 with removal of 10.5 L again with albumin. Continue Lasix and spironolactone Daily weights, 2 g sodium diet, fluid restriction 1.8 L INR elevated at 2.0 Spontaneous bacterial peritonitis Ascitic fluid with increased WBCs neutrophilic Fluid cultures has been negative however this was sent after patient was already started on antibiotic Continue ceftriaxone x 7 days. then will start rifaximin. Elevated ammonia No signs of hepatic encephalopathy at this time On maintenance lactulose Aim 2 bowel movements a day Cholestatic jaundice Likely due to cirrhosis of liver No CBD obstruction seen in CT abdomen and pelvis Hepatitis C infection Patient will need to follow-up with the ID as an outpatient for treatment. Diverticulosis and cholelithiasis in the gallbladder and cystic duct Seen in CT [place] No acute issues Alcoholic Continue thiamine folate and multivitamin History of hypertension Blood pressure has been normal in the hospital History of hypothyroid will check TSH. Plan/VTE VTE Prophylaxis Ordered?: Yes VS, I&O, 24H, Fishbone Vital Signs/I&O Vital Signs Date Time Temp Pulse Resp B/P (MAP) Pulse Ox O2 Delivery O2 Flow Rate FiO2 10/05/21 06:00 97 113/52 10/05/21 06:00 98.2 20 95 Room Air 10/04/21 14:00 2.0 I&O- Last 24 Hours up to 6 AM 10/05/21 06:00 Intake Total 2730.0 ml Output Total 1300 ml Balance 1430.0 ml Laboratory Data 24H LABS Laboratory Tests 2 10/04/21 11:19: Bedside Glucose (Misc Panel) 110 10/04/21 16:37: Bedside Glucose (Misc Panel) 102 10/04/21 20:59: Bedside Glucose (Misc Panel) 113 10/05/21 06:31: Nucleated Red Blood Cells % (auto) 0.0, Immature Platelet Fraction 4.1, Prothrombin Time 23.3H, Prothromb Time International Ratio 2.03, Activated Partial Thromboplast Time 48.9H, Anion Gap 6L, Glomerular Filtration Rate > 60.0, Calcium Level 7.7L, Total Bilirubin 4.0H, Aspartate Amino Transf (AST/SGOT) 43H, Alanine Aminotransferase (ALT/SGPT) 26, Alkaline Phosphatase 128H, Ammonia 81H, Total Protein 5.8L, Albumin 2.2L, Albumin/Globulin Ratio 0.6, Thyroid Stimulating Hormone (TSH) 27.300H CBC/BMP Laboratory Tests 10/05/21 06:31 Microbiology Microbiology 10/01/21 Gram Stain - Final, Complete 10/01/21 Body Fluid Culture - Final, Complete Yanira Zimmer MD Oct 05, 2021 08:00
[2021-10-05 14:00] VITALS: BP 102/52
[2021-10-05] MEDS: LEVOTHYROXINE 25MCG TABLET (0.025MG) PO SCH (15:03)
[2021-10-05] MEDS: POTASSIUM CHLORIDE 10MEQ SR TABLET PO SCH (20:15)
[2021-10-05 22:00] VITALS: BP 126/81
[2021-10-05] MEDS: diphenhydrAMINE 25MG CAP PO PRN (23:25)
[2021-10-06] VITALS (13 sets, daily range): BP systolic 80–140; BP diastolic 48–83
[2021-10-06] MEDS: FUROSEMIDE 40MG/4ML VIAL (J1940) IV SCH ×2 (03:06→08:58)
[2021-10-06] MEDS: LEVOTHYROXINE 25MCG TABLET (0.025MG) PO SCH (05:27)
[2021-10-06 08:03] LABS: HEMATOCRIT 30.8 % (42.0-52.0); HEMOGLOBIN 10.3 g/dl (13.5-17.5); MEAN CORPUSCULAR HEMOGLOBIN 34.2 pg (27.0-33.0); MEAN CORPUSCULAR HGB CONC 33.4 g/dl (32.0-36.5); MEAN CORPUSCULAR VOLUME 102.3 fl (80.0-96.0); PLATELET COUNT, AUTOMATED 50 10^3/uL (150-450); RED BLOOD COUNT 3.01 10^6/uL (4.30-6.10); WHITE BLOOD COUNT 4.3 10^3/uL (4.0-10.0)
[2021-10-06 08:27] LABS: ALT/SGPT 28 U/L (12-78); BILIRUBIN,TOTAL 3.5 MG/DL (0.2-1.0); BLOOD UREA NITROGEN 12 MG/DL (7-18); CALCIUM LEVEL 7.5 MG/DL (8.8-10.2); CARBON DIOXIDE LEVEL 34 MEQ/L (21-32); CHLORIDE LEVEL 99 MEQ/L (98-107); CREATININE FOR GFR 0.55 MG/DL (0.70-1.30); GLOMERULAR FILTRATION RATE > 60.0 (>49); GLUCOSE, FASTING 84 MG/DL (70-100); POTASSIUM SERUM 3.1 MEQ/L (3.5-5.1); SODIUM LEVEL 137 MEQ/L (136-145); TOTAL PROTEIN 5.5 GM/DL (6.4-8.2)
[2021-10-06] MEDS: MULTIVITAMINS/MINERALS THERAP 1 TAB PO SCH (08:58)
[2021-10-06] MEDS: cefTRIAXone SOD 2 GM in D5W MINI-BAG PLUS 50 ML IV SCH (08:58)
[2021-10-06] MEDS: SPIRONOLACTONE 50 MG TAB PO SCH ×2 (09:00→16:41)
[2021-10-06] MEDS: POTASSIUM CHLORIDE 10MEQ SR TABLET PO SCH ×2 (09:00→20:05)
[2021-10-06] MEDS: PHYTONADIONE 5 MG TAB PO SCH (09:00)
[2021-10-06] MEDS: FOLIC ACID 1 MG TAB PO SCH (09:00)
[2021-10-06] MEDS: LACTULOSE 20 GM/30 ML SYRUP UD PO SCH ×2 (09:11→20:04)
[2021-10-06] MEDS ORDERED: POTASSIUM CHLORIDE 10MEQ SR TABLET PO ONE (12:05)
--- NOTE | 2021-10-06 12:09 | IPNPDOC ---
Subjective Date Seen The patient was seen on 10/06/21. Subjective Chief Complaint/HPI Was hypotensive this am with dizziness and tachycardia. Stopped lasix injection. Started on albumin again and will put on lasix infusion. Still leaking fluid from the paracentesis site. Fluid seepage from vitaliy legs is getting better. Oren reports his leg swelling has gone down and he is able to walk better. Objective Physical Examination General Exam: Positive: Alert, Cooperative, No Acute Distress Eye Exam: Positive: PERRLA, Conjunctiva & lids normal, Sclera icteric Chest Exam: Positive: Clear to auscultation Heart Exam: Positive: Rate Normal, Regular Rhythm, Normal S1, Normal S2; Negative: Murmurs, Rubs Abdomen Exam: Positive: Normal bowel sounds, Soft, Other (Distended with massive ascites) Extremity Exam: Positive: Edema (4+ bipedal edema) Skin Exam: Positive: Other skin issue (Chronic bilateral venous stasis changes in both the legs) Neuro Exam: Positive: Normal Speech, Strength at 5/5 X4 ext, Normal Tone, Other (No flap) Psych Exam: Positive: Memory Intact, Oriented x 3 Assessment /Plan Assessment This is a 61-year-old alcoholic, substance use ( Cocaine), smoker, with past medical history of hypertension, hypothyroidism, peripheral neuropathy with chronic pain, cirrhosis of liver, erectile dysfunction, male who presented to [facility] ER with a chief complaint of abdominal distention x1 month associated with increasing leg swelling. His weight has increased by 80 Lbs in 1 month. He was admitted for decompensated alcoholic cirrhosis. Decompensated alcoholic cirrhosis with extensive gastroesophageal and splenic varices, thrombocytopenia, coagulopathy, massive ascites Status post large-volume paracentesis with removal of 13.2 L with albumin on 10/01/2021, second paracentesis on 10/03/2021 with removal of 10.5 L again with albumin. Continue Lasix gtt and spironolactone with albumin Daily weights, 2 g sodium diet, fluid restriction 1.8 L INR elevated at 2.0 Spontaneous bacterial peritonitis Ascitic fluid with increased WBCs neutrophilic Fluid cultures has been negative however this was sent after patient was already started on antibiotic Continue ceftriaxone x 7 days. then will start rifaximin. Elevated ammonia No signs of hepatic encephalopathy at this time On maintenance lactulose Aim 2 bowel movements a day Cholestatic jaundice Likely due to cirrhosis of liver No CBD obstruction seen in CT abdomen and pelvis Hepatitis C infection Patient will need to follow-up with the ID as an outpatient for treatment. Diverticulosis and cholelithiasis in the gallbladder and cystic duct Seen in CT [place] No acute issues Alcoholic Continue thiamine folate and multivitamin History of hypertension Blood pressure has been normal in the hospital Hypothyroid TSH elevated started on synthroid 25 mcg. Plan/VTE VTE Prophylaxis Ordered?: Yes VS, I&O, 24H, Fishbone Vital Signs/I&O Vital Signs Date Time Temp Pulse Resp B/P (MAP) Pulse Ox O2 Delivery O2 Flow Rate FiO2 10/06/21 10:51 98.7 72 20 112/77 97 Nasal Cannula 2.0 I&O- Last 24 Hours up to 6 AM 10/06/21 05:59 Intake Total 1800 ml Output Total 2675 ml Balance -875 ml Laboratory Data 24H LABS Laboratory Tests 2 10/05/21 12:07: Bedside Glucose (Misc Panel) 122H 10/05/21 17:06: Bedside Glucose (Misc Panel) 94 10/05/21 20:29: Bedside Glucose (Misc Panel) 95 10/06/21 06:22: Bedside Glucose (Misc Panel) 85 10/06/21 07:34: Nucleated Red Blood Cells % (auto) 0.0, Immature Platelet Fraction 4.4, Anion Gap 4L, Glomerular Filtration Rate > 60.0, Calcium Level 7.5L, Total Bilirubin 3.5H, Aspartate Amino Transf (AST/SGOT) 44H, Alanine Aminotransferase (ALT/SGPT) 28, Alkaline Phosphatase 156H, Total Protein 5.5L, Albumin 2.0L, Albumin/Globulin Ratio 0.6 10/06/21 11:19: Bedside Glucose (Misc Panel) 102 CBC/BMP Laboratory Tests 10/06/21 07:34 Microbiology Microbiology 10/01/21 Gram Stain - Final, Complete 10/01/21 Body Fluid Culture - Final, Complete Yanira Zimmer MD Oct 06, 2021 12:09
[2021-10-06] MEDS ORDERED: FUROSEMIDE injection 250 MG in D5W 225 ML IV SCH (14:00)
[2021-10-06] MEDS: diphenhydrAMINE 25MG CAP PO PRN (23:10)
[2021-10-07] VITALS (8 sets, daily range): BP systolic 102–127; BP diastolic 56–78
[2021-10-07] MEDS: LEVOTHYROXINE 25MCG TABLET (0.025MG) PO SCH (05:48)
[2021-10-07 06:58] LABS: HEMATOCRIT 32.3 % (42.0-52.0); HEMOGLOBIN 10.9 g/dl (13.5-17.5); MEAN CORPUSCULAR HEMOGLOBIN 34.5 pg (27.0-33.0); MEAN CORPUSCULAR HGB CONC 33.7 g/dl (32.0-36.5); MEAN CORPUSCULAR VOLUME 102.2 fl (80.0-96.0); RED BLOOD COUNT 3.16 10^6/uL (4.30-6.10); WHITE BLOOD COUNT 5.1 10^3/uL (4.0-10.0)
[2021-10-07 07:02] LABS: PLATELET COUNT, AUTOMATED 53 10^3/uL (150-450)
[2021-10-07 07:25] LABS: ALBUMIN 2.8 GM/DL (3.2-5.2); ALT/SGPT 32 U/L (12-78); BILIRUBIN,TOTAL 4.2 MG/DL (0.2-1.0); BLOOD UREA NITROGEN 9 MG/DL (7-18); CALCIUM LEVEL 7.8 MG/DL (8.8-10.2); CARBON DIOXIDE LEVEL 36 MEQ/L (21-32); CHLORIDE LEVEL 96 MEQ/L (98-107); CREATININE FOR GFR 0.57 MG/DL (0.70-1.30); GLOMERULAR FILTRATION RATE > 60.0 (>49); GLUCOSE, FASTING 84 MG/DL (70-100); SODIUM LEVEL 136 MEQ/L (136-145); TOTAL PROTEIN 6.5 GM/DL (6.4-8.2)
[2021-10-07] MEDS: cefTRIAXone SOD 2 GM in D5W MINI-BAG PLUS 50 ML IV SCH (08:21)
[2021-10-07] MEDS: MULTIVITAMINS/MINERALS THERAP 1 TAB PO SCH (08:21)
[2021-10-07] MEDS: PHYTONADIONE 5 MG TAB PO SCH (08:21)
[2021-10-07] MEDS: LACTULOSE 20 GM/30 ML SYRUP UD PO SCH ×2 (08:21→20:22)
[2021-10-07] MEDS: FOLIC ACID 1 MG TAB PO SCH (08:21)
[2021-10-07] MEDS: rifAXIMin 550 MG TAB (XIFAXAN) PO SCH ×2 (08:21→20:22)
[2021-10-07] MEDS: SPIRONOLACTONE 50 MG TAB PO SCH ×2 (08:21→16:32)
[2021-10-07] MEDS: POTASSIUM CHLORIDE 10MEQ SR TABLET PO SCH ×3 (08:22→20:22)
[2021-10-07 09:51] LABS: MAGNESIUM LEVEL 1.5 MG/DL (1.8-2.4)
[2021-10-07] MEDS: TORSEMIDE 20 MG TAB PO SCH (10:13)
[2021-10-07] MEDS: KCL 10MEQ/100ML SWI (KRUN) 10 MEQ in IV 1 EA IV SCH (10:14)
[2021-10-07] MEDS ORDERED: POTASSIUM CHLORIDE 10MEQ SR TABLET PO ONE (11:45)
[2021-10-07] MEDS: MAG SULF 1GM/100ML (MAG RUN) 1 GM in IV 1 EA IV SCH ×2 (12:05→12:06)
--- NOTE | 2021-10-07 12:26 | IPNPDOC ---
Subjective Date Seen The patient was seen on 10/07/21. Subjective Chief Complaint/HPI Feeling better complaining of insomnia. He is leg swelling is going down though it is still seeping fluids. His abdominal swelling is still huge. We will try to get a paracentesis tomorrow with albumin. No fever or chills. Objective Physical Examination General Exam: Positive: Alert, Cooperative, No Acute Distress Eye Exam: Positive: PERRLA, Conjunctiva & lids normal, Sclera icteric Chest Exam: Positive: Clear to auscultation Heart Exam: Positive: Rate Normal, Regular Rhythm, Normal S1, Normal S2; Negative: Murmurs, Rubs Abdomen Exam: Positive: Normal bowel sounds, Soft, Other (Distended with mass yanni ascites) Extremity Exam: Positive: Edema (4+ bipedal edema) Skin Exam: Positive: Other skin issue (Chronic bilateral venous stasis changes in both the legs) Neuro Exam: Positive: Normal Speech, Strength at 5/5 X4 ext, Normal Tone, Other (No flap) Psych Exam: Positive: Memory Intact, Oriented x 3 Assessment /Plan Assessment This is a 61-year-old alcoholic, substance use ( Cocaine), smoker, with past medical history of hypertension, hypothyroidism, peripheral neuropathy with chronic pain, cirrhosis of liver, erectile dysfunction, male who presented to [facility] ER with a chief complaint of abdominal distention x1 month associated with increasing leg swelling. His weight has increased by 80 Lbs in 1 month. He was admitted for decompensated alcoholic cirrhosis. Decompensated alcoholic cirrhosis with extensive gastroesophageal and splenic varices, thrombocytopenia, coagulopathy, massive ascites Status post large-volume paracentesis with removal of 13.2 L with albumin on 10/01/2021, second paracentesis on 10/03/2021 with removal of 10.5 L again with albumin. Daily weights, 2 g sodium diet, fluid restriction 1.8 L INR elevated at 2.0 Continue torsemide and spironolactone. Have scheduled for another paracentesis on 10/08/2021 will need to be given albumin along with it. Spontaneous bacterial peritonitis Ascitic fluid with increased WBCs neutrophilic Fluid cultures has been negative however this was sent after patient was already started on antibiotic Continue ceftriaxone x 7 days. then will start rifaximin. Hypokalemia and hypomagnesemia Being replaced IV and p.o. Elevated ammonia No signs of hepatic encephalopathy at this time On maintenance lactulose Aim 2 bowel movements a day Cholestatic jaundice Likely due to cirrhosis of liver No CBD obstruction seen in CT abdomen and pelvis Hepatitis C infection Patient will need to follow-up with the ID as an outpatient for treatment. Diverticulosis and cholelithiasis in the gallbladder and cystic duct Seen in [facility] No acute issues Alcoholic Continue thiamine folate and multivitamin History of hypertension Blood pressure has been normal in the hospital Hypothyroid TSH elevated started on synthroid 25 mcg. Plan/VTE VTE Prophylaxis Ordered?: Yes VS, I&O, 24H, Fishbone Vital Signs/I&O Vital Signs Date Time Temp Pulse Resp B/P (MAP) Pulse Ox O2 Delivery O2 Flow Rate FiO2 10/07/21 06:11 98.1 88 19 116/64 98 Room Air 10/06/21 17:06 2.0 I&O- Last 24 Hours up to 6 AM 10/07/21 06:00 Intake Total 1560.0 ml Output Total 2650 ml Balance -1090.0 ml Laboratory Data 24H LABS Laboratory Tests 2 10/06/21 15:59: Bedside Glucose (Misc Panel) 152H 10/07/21 06:28: Nucleated Red Blood Cells % (auto) 0.0, Anion Gap 4L, Glomerular Filtration Rate > 60.0, Calcium Level 7.8L, Magnesium Level 1.5L, Total Bilirubin 4.2H, Aspartate Amino Transf (AST/SGOT) 56H, Alanine Aminotransferase (ALT/SGPT) 32, Alkaline Phosphatase 168H, Total Protein 6.5, Albumin 2.8#L, Albumin/Globulin R atio 0.8 10/07/21 12:04: Bedside Glucose (Misc Panel) 121H CBC/BMP Laboratory Tests 10/07/21 06:28 Microbiology Microbiology 10/01/21 Gram Stain - Final, Complete 10/01/21 Body Fluid Culture - Final, Complete Yanira Zimmer MD Oct 07, 2021 12:26
[2021-10-08] VITALS (12 sets, daily range): BP systolic 106–126; BP diastolic 64–78
[2021-10-08] MEDS: diphenhydrAMINE 25MG CAP PO PRN ×2 (02:45→21:10)
[2021-10-08] MEDS: LEVOTHYROXINE 25MCG TABLET (0.025MG) PO SCH (05:18)
[2021-10-08 06:34] LABS: INR 1.89; PROTHROMBIN TIME 22.1 SECONDS (12.7-14.5)
[2021-10-08 06:35] LABS: PARTIAL THROMBOPLASTIN TIME 47.2 SECONDS (25.9-37.0)
[2021-10-08] MEDS: POTASSIUM CHLORIDE 10MEQ SR TABLET PO SCH ×3 (09:17→21:10)
[2021-10-08] MEDS: SPIRONOLACTONE 50 MG TAB PO SCH ×2 (09:17→17:43)
[2021-10-08] MEDS: TORSEMIDE 20 MG TAB PO SCH (09:17)
[2021-10-08] MEDS: LACTULOSE 20 GM/30 ML SYRUP UD PO SCH ×2 (09:17→21:10)
[2021-10-08] MEDS: MULTIVITAMINS/MINERALS THERAP 1 TAB PO SCH (09:17)
[2021-10-08] MEDS: FOLIC ACID 1 MG TAB PO SCH (09:17)
[2021-10-08] MEDS: rifAXIMin 550 MG TAB (XIFAXAN) PO SCH ×2 (09:17→21:10)
[2021-10-08 10:07] LABS: HEMATOCRIT 30.6 % (42.0-52.0); HEMOGLOBIN 10.2 g/dl (13.5-17.5); MEAN CORPUSCULAR HEMOGLOBIN 34.2 pg (27.0-33.0); MEAN CORPUSCULAR HGB CONC 33.3 g/dl (32.0-36.5); MEAN CORPUSCULAR VOLUME 102.7 fl (80.0-96.0); RED BLOOD COUNT 2.98 10^6/uL (4.30-6.10); WHITE BLOOD COUNT 5.1 10^3/uL (4.0-10.0)
[2021-10-08 10:08] LABS: PLATELET COUNT, AUTOMATED 50 10^3/uL (150-450)
[2021-10-08 10:28] LABS: BLOOD UREA NITROGEN 11 MG/DL (7-18); CALCIUM LEVEL 7.9 MG/DL (8.8-10.2); CARBON DIOXIDE LEVEL 32 MEQ/L (21-32); CHLORIDE LEVEL 99 MEQ/L (98-107); CREATININE FOR GFR 0.63 MG/DL (0.70-1.30); GLOMERULAR FILTRATION RATE > 60.0 (>49); GLUCOSE, FASTING 123 MG/DL (70-100); POTASSIUM SERUM 3.4 MEQ/L (3.5-5.1); SODIUM LEVEL 137 MEQ/L (136-145)
--- NOTE | 2021-10-08 17:36 | REP ---
INDICATION: massive ascites The patient has a history of ascites COMPARISON: None. TECHNIQUE: The procedure was performed by LIAT Hernández, under the direct supervision of Dr. Lanier The risks and benefits of the procedure were explained to the patient and an informed consent was obtained both verbally and written. Directly prior to the start of the procedure a formal time-out was completed in the procedure room. The largest pocket of fluid was localized in the left flank using ultrasound guidance. The skin was prepped and draped in a sterile fashion. Ten ML of 1% lidocaine 10 mg/ml was used as a local anesthetic. An 8-Canadian multi side-hole catheter was inserted using trocar technique. FINDINGS: The largest pocket of fluid was localized in the left flank using ultrasound guidance. Skin was prepped and draped in sterile fashion. 10 mL of 1% lidocaine was utilized for local anesthetic. An 8 Canadian multi side hole catheter was inserted using trocar technique. 4900 mL of yellow fluid were aspirated. The catheter was removed and a sterile dressing was placed over the insertion site. The patient tolerated the procedure well and there were no immediate complications. After the appropriate amount of monitored convalescence, the patient was discharged from the department. IMPRESSION: Technically successful paracentesis yielding 4900 mL of yellow fluid. <Electronically signed by Cristina Marcano > 10/08/21 [id number] <Electronically signed by Larry Lanier > 10/08/21 [id number]
--- NOTE | 2021-10-08 19:47 | IPNPDOC ---
Text Note Date of Service The patient was seen on 10/08/21. NOTE Subjective: -Had paracentesis today, removed 4900cc -Reports that leg swelling is going down -No fever or chills. Objective: Vitals: see below General: Alert, Cooperative, No Acute Distress Eyes: PERRLA, Conjunctiva & lids normal, has scleral icterus Chest: Clear to auscultation bilaterally Heart: Rate Normal, Regular Rhythm, Normal S1, Normal S2, no noted m/r/g Abdomen: Large, normal bowel sounds, soft Extremities: 4+ Edema with some seepage Skin: with chronic bilateral venous stasis changes in both the legs Neuro: Normal Speech, Strength at 5/5 X4 ext, Normal Tone Psych: Memory Intact, Oriented x 3 Labs: Reviewed Assessment: 61-year-old M with alcoholic and HCV cirrhosis, PSUD with cocaine, smoker, history of hypertension, hypothyroidism, peripheral neuropathy with chronic pain who presented with mirna anasarca and abdominal distention and was admitted for decompensated alcoholic cirrhosis. Decompensated alcoholic cirrhosis with extensive gastroesophageal and splenic varices, thrombocytopenia, coagulopathy, massive ascites -Status post large-volume paracentesis with removal of 13.2 L with albumin on 10/01/2021, second paracentesis on 10/03/2021 with removal of 10.5 L again with albumin. And another one today. -Daily weights, 2 g sodium diet, fluid restriction 1.8 L -INR elevated -Continue torsemide and spironolactone. -s/p albumin today Spontaneous bacterial peritonitis -Ascitic fluid with increased WBCs neutrophilic -Fluid cultures has been negative however this was sent after patient was already started on antibiotic -s/p ceftriaxone x 7 days. -continue on rifaximin BID Hypokalemia and hypomagnesemia -Being replaced daily Elevated ammonia -No signs of hepatic encephalopathy at this time -On maintenance lactulose -Aim 2 bowel movements a day Cholestatic jaundice -Likely due to cirrhosis of liver -No CBD obstruction seen in CT abdomen and pelvis Hepatitis C infection -Patient will need to follow-up with the ID as an outpatient for treatment. Diverticulosis and cholelithiasis in the gallbladder and cystic duct -Seen in [facility] -No acute issues Alcoholic -Continue thiamine folate and multivitamin History of hypertension -Blood pressure has been normal in the hospital Hypothyroid -TSH was elevated -Continue synthroid 25 mcg. VS,Fishbone, I+O VS, Fishbone, I+O Laboratory Tests 10/08/21 09:50 Vital Signs Date Time Temp Pulse Resp B/P (MAP) Pulse Ox O2 Delivery O2 Flow Rate FiO2 10/08/21 18:46 98.1 96 18 122/78 96 Room Air 10/06/21 17:06 2.0 I&O- Last 24 Hours up to 6 AM 10/08/21 06:00 Intake Total 1910.0 ml Output Total 2400 ml Balance -490.0 ml ANTHONY BREAUX MD Oct 08, 2021 19:46
[2021-10-09] MEDS: LEVOTHYROXINE 25MCG TABLET (0.025MG) PO SCH (05:17)
[2021-10-09 05:18] VITALS: BP 114/70
[2021-10-09 06:10] LABS: HEMATOCRIT 29.5 % (42.0-52.0); HEMOGLOBIN 9.7 g/dl (13.5-17.5); MEAN CORPUSCULAR HEMOGLOBIN 34.2 pg (27.0-33.0); MEAN CORPUSCULAR HGB CONC 32.9 g/dl (32.0-36.5); MEAN CORPUSCULAR VOLUME 103.9 fl (80.0-96.0); RED BLOOD COUNT 2.84 10^6/uL (4.30-6.10); WHITE BLOOD COUNT 4.2 10^3/uL (4.0-10.0)
[2021-10-09 06:14] LABS: PLATELET COUNT, AUTOMATED 47 10^3/uL (150-450)
[2021-10-09 06:30] LABS: BLOOD UREA NITROGEN 8 MG/DL (7-18); CALCIUM LEVEL 7.7 MG/DL (8.8-10.2); CARBON DIOXIDE LEVEL 33 MEQ/L (21-32); CHLORIDE LEVEL 100 MEQ/L (98-107); CREATININE FOR GFR 0.63 MG/DL (0.70-1.30); GLOMERULAR FILTRATION RATE > 60.0 (>49); GLUCOSE, FASTING 98 MG/DL (70-100); MAGNESIUM LEVEL 1.9 MG/DL (1.8-2.4); POTASSIUM SERUM 3.5 MEQ/L (3.5-5.1); SODIUM LEVEL 138 MEQ/L (136-145)
[2021-10-09] MEDS ORDERED: TORS20TA2 PO (09:25)
[2021-10-09] MEDS ORDERED: VITMTA PO (09:25)
[2021-10-09] MEDS ORDERED: LACT20EL PO (09:25)
[2021-10-09] MEDS ORDERED: XIFA550T PO (09:25)
[2021-10-09] MEDS ORDERED: FOLI1TAB11 PO (09:25)
[2021-10-09] MEDS ORDERED: ALDA50TA2 PO (09:25)
[2021-10-09] MEDS ORDERED: POTA1TAB14 PO (09:25)
[2021-10-09] MEDS ORDERED: LEVO25TA5 PO (09:25)
[2021-10-09] MEDS: FOLIC ACID 1 MG TAB PO SCH (09:36)
[2021-10-09] MEDS: MULTIVITAMINS/MINERALS THERAP 1 TAB PO SCH (09:36)
[2021-10-09] MEDS: SPIRONOLACTONE 50 MG TAB PO SCH (09:36)
[2021-10-09] MEDS: rifAXIMin 550 MG TAB (XIFAXAN) PO SCH (09:36)
[2021-10-09] MEDS: LACTULOSE 20 GM/30 ML SYRUP UD PO SCH (09:36)
[2021-10-09] MEDS: TORSEMIDE 20 MG TAB PO SCH (09:36)
[2021-10-09] MEDS: POTASSIUM CHLORIDE 10MEQ SR TABLET PO SCH (09:37)
--- NOTE | 2021-10-09 09:45 | DS.PDOC ---
Discharge Summary General Date of Admission Oct 01, 2021 at 00:28 Date of Discharge 10/09/2021 Attending Physician: ANTHONY BREAUX MD Discharge Summary PROCEDURES PERFORMED DURING STAY: Paracentesis x 3 during this admission ADMITTING DIAGNOSES: Decompensated liver cirrhosis DISCHARGE DIAGNOSES: Decompensated alcoholic cirrhosis with extensive gastroesophageal and splenic varices, thrombocytopenia, coagulopathy, massive ascites Hypertension Hypothyroidism Alcoholic and HCV cirrhosis PSUD with cocaine smoker Chronic peripheral neuropathy with chronic pain Hypoalbuminemia SBP Hypokalemia Hypomagnesemia Hyperammonemia COMPLICATIONS/CHIEF COMPLAINT: Abdominal Ascites,Abdominal Pain,Cirrhosis. HISTORY OF PRESENT ILLNESS: 61-year-old gentleman who presented to [facility] ER with a chief complaint of abdominal distention x1 month. Patient has a long history of heavy alcohol abuse where he drank 24-30 beers and half a bottle of liquor on a daily basis. He reported having quit in 2008 and was sober for 6-1/2 years before he relapsed with about a third of what he drank prior. He still drinks about 12 packs of beer per day up until 1 week prior to admission. He reported that he started noticing that his abdomen was getting more extended for about a month and had especially gotten worse in the week prior to presentation. Around the same time, he also quit snorting cocaine and tobacco smoking. He reported that his abdominal distention has made it hard for him to urinate. He also noticed increased leg swelling up to his knees bilaterally and his weight is increased from 235 pounds to now 310 to 315 pounds within the past month. He denied any fever, chills, nausea, vomiting. HOSPITAL COURSE: He presented hemodynamically stable and was found to be in decompensated liver cirrhosis with mirna anasarca and abdominal distention and was admitted for de compensated alcoholic cirrhosis. His course in summary included treatment of decompensated liver cirrhosis with volume optimization with introduction of cirrhosis meds, paracentesis, treatment of SBP, electrolyte abnormalities, limited cirrhosis workup that revealed HCV infection that is untreated. The course per issue was as follows: Decompensated alcoholic cirrhosis with extensive gastroesophageal and splenic varices, thrombocytopenia, coagulopathy, massive ascites -Status post large-volume paracentesis with removal of 13.2 L with albumin on 10/01/2021, second paracentesis on 10/03/2021 with removal of 10.5 L again with albumin. And another one on 10/08 for ~5L -2 g sodium diet, fluid restriction 1.8 L -INR elevated -Was started on torsemide and spironolactone. -s/p albumin Spontaneous bacterial peritonitis -Ascitic fluid with increased WBCs neutrophilic -Fluid cultures were negative however they was sent after patient was already started on antibiotic -s/p ceftriaxone x 7 days. -continue on rifaximin BID Hypokalemia and hypomagnesemia -Being replaced daily Elevated ammonia -No signs of hepatic encephalopathy at this time -Started on maintenance lactulose -Aim 2 bowel movements a day Cholestatic jaundice -Likely due to cirrhosis of liver -No CBD obstruction seen in CT abdomen and pelvis Hepatitis C infection -Patient will need to follow-up with the ID as an outpatient for treatment. Diverticulosis and cholelithiasis in the gallbladder and cystic duct -Seen in [facility] -No acute issues currently History of alcohol use disorder -Continue thiamine folate and multivitamin History of hypertension -Blood pressure has been normal in the hospital Hypothyroid -TSH was elevated -Continue synthroid 25 mcg. DISCHARGE MEDICATIONS: Please see below. ALLERGIES: Please see below. PHYSICAL EXAMINATION ON DISCHARGE: VITAL SIGNS: Please see below. General: Alert, Cooperative, No Acute Distress Eyes: PERRLA, Conjunctiva & lids normal, has scleral icterus Chest: Clear to auscultation bilaterally Heart: Rate Normal, Regular Rhythm, Normal S1, Normal S2, no noted m/r/g Abdomen: Large, normal bowel sounds, soft Extremities: 4+ Edema with some seepage Skin: with chronic bilateral venous stasis changes in both the legs Neuro: Normal Speech, Strength at 5/5 X4 ext, Normal Tone Psych: Memory Intact, Oriented x 3 LABORATORY DATA: Please see below. IMAGING: CT A/P: Lungs: Small calcified granuloma in the right lower lobe. Lung bases are otherwise clear. Liver: The liver is small with a nodular cirrhotic morphology. No liver masses are seen. Gallbladder and bile ducts: There are small calculi in the gallbladder and cystic duct. No gallbladder wall thickening or biliary duct dilation. Pancreas: Normal. No ductal dilation. Spleen: The spleen is enlarged measuring 19 cm craniocaudally. Adrenal glands: Normal. No mass. Kidneys and ureters: Unremarkable. No calculi or hydronephrosis. Stomach and bowel: There is colonic diverticulosis without evidence of diverticulitis. The small bowel is unremarkable. No bowel obstruction. Appendix: No evidence of appendicitis. Intraperitoneal space: There is a very large volume of abdominal and pelvic ascites. No pneumoperitoneum. No loculated abscess. Mild mesenteric edema. Vasculature: The portal vein is patent and appears mildly dilated. There are extensive gastroesophageal and splenic varices. No aortic aneurysm or dissection. Lymph nodes: Unremarkable. No enlarged lymph nodes. Urinary bladder: Unremarkable as visualized. Reproductive: Unremarkable as visualized. Bones/joints: Unremarkable. No acute fracture. Soft tissues: Extensive subcutaneous edema. IMPRESSION: 1. Cirrhotic liver with extensive varices, splenomegaly, and large volume of abdominal and pelvic ascites. 2. Calculi in the gallbladder and common bile duct. No biliary duct dilation. 3. Colonic diverticulosis without evidence of diverticulitis. CXR: The mediastinum and cardiac silhouette are stable and within normal limits for portable technique. The lung rees are clear without acute consolidation, effusion, or pneumothorax. Skeletal structures are intact. IMPRESSION: No acute cardiopulmonary process appreciated. Liver US: Liver: Cirrhotic liver morphology with nodular liver surface. No liver masses are seen. Gallbladder: Small calculi in the gallbladder lumen. No gallbladder wall thickening. Common bile duct: No biliary duct dilation. Pancreas: Visualized pancreas is unremarkable. Right kidney: Unremarkable. No mass. No hydronephrosis. Intraperitoneal space: There is a large volume of abdominal and pelvic ascites. IMPRESSION: 1. Cirrhotic liver morphology. No liver masses are seen. 2. Large volume of abdominal and pelvic ascites. 3. Cholelithiasis. No biliary duct dilation. Bilateral LE doppler venous US: Ultrasound examination of the right and left lower extremity deep venous structures from the common femoral vein through the popliteal vein demonstrates normal compressibility, flow and wave patterns in response to respiration and augmentation. Evaluation of the bilateral calf veins is incomplete due to subcutaneous edema and technical factors. There is no evidence for deep venous thrombosis. IMPRESSION: No evidence for deep venous thrombosis. PROGNOSIS: Fair, high MELD score ACTIVITY: As tolerated DIET: 2g sodium DISCHARGE PLAN: Home with close PCP follow up. ID and GI referral DISPOSITION: Home DISCHARGE INSTRUCTIONS: Home with close PCP follow up. ID and GI referral Refrain from further alcohol consumption as this may result in potential deco mpensation of already severe cirrhosis and potential Please adhere to all your new medications and appointments ITEMS TO FOLLOWUP ON ON OUTPATIENT: Decompensated liver cirrhosis HCV infection DISCHARGE CONDITION: Stable TIME SPENT ON DISCHARGE: 70 minutes. Vital Signs/I&Os Vital Signs Date Time Temp Pulse Resp B/P (MAP) Pulse Ox O2 Delivery O2 Flow Rate FiO2 10/09/21 05:18 99.0 98 18 114/70 (85) 97 Room Air 10/06/21 17:06 2.0 I&O- Last 24 Hours up to 6 AM 10/09/21 06:00 Intake Total 795.0 ml Output Total 7125 ml Balance -6330.0 ml Laboratory Data Labs 24H Laboratory Tests 2 10/08/21 09:50: Nucleated Red Blood Cells % (auto) 0.0, Immature Platelet Fraction 6.4, Anion Gap 6L, Glomerular Filtration Rate > 60.0, Calcium Level 7.9L, Magnesium Level 2.0 10/08/21 11:53: Bedside Glucose (Misc Panel) 116H 10/08/21 16:43: Bedside Glucose (Misc Panel) 98 10/08/21 20:13: Bedside Glucose (Misc Panel) 99 10/09/21 05:23: Nucleated Red Blood Cells % (auto) 0.0, Anion Gap 5L, Glomerular Filtration Rate > 60.0, Calcium Level 7.7L, Magnesium Level 1.9 CBC/BMP Laboratory Tests 10/08/21 09:50 10/09/21 05:23 FSBS Laboratory Tests Test 10/08/21 11:53 10/08/21 16:43 10/08/21 20:13 Range/Units Bedside Glucose (Misc Panel) 116 98 99 80-115 MG/DL Microbiology Microbiology 10/01/21 Gram Stain - Final, Resulted 10/01/21 Body Fluid Culture - Preliminary, Resulted Discharge Medications Scheduled Folic Acid (Folic Acid) 1 Mg Tablet, 1 MG PO DAILY Lactulose (Lactulose) 10 Gm/15 Ml Solution, 15 ML PO BID Levothyroxine Sodium (Levothyroxine Sodium) 25 Mcg Tablet, 25 MCG PO DAILY@06 Multivitamins (Thera M Plus Tablet) 1 Each Tablet, 1 TAB PO DAILY Potassium Chloride (Potassium Chloride) 20 Meq Tablet.er, 1 TAB PO TID Rifaximin (Xifaxan) 550 Mg Tablet, 550 MG PO BID Spironolactone (Aldactone) 50 Mg Tablet, 50 MG PO BID@, Torsemide (Torsemide) 20 Mg Tablet, 40 MG PO DAILY Allergies Coded Allergies: No Known Allergies (Unverified , 09/30/21) ANTHONY BREAUX MD Oct 09, 2021 09:45
== END 2021-10-09 15:50 | disposition home health service (06) | DRG 432 ==
LOC: M ED 15:06 → M ED INP 10-01 00:28 → ENRESERV 10-01 02:06 → M MS5PR 10-01 05:00
PROVIDERS: ADMIT Family Medicine; ATTEND Internal Medicine
PROC: 30233J1 Transfusion of Nonautologous Serum Albumin into Peripheral Vein, Percutaneous Approach (ICD-10-PCS; 2021-10-01)
PROC: 0W9G3ZX Drainage of Peritoneal Cavity, Percutaneous Approach, Diagnostic (ICD-10-PCS; principal; 2021-10-01 16:00)
PROC: 0W9G3ZZ Drainage of Peritoneal Cavity, Percutaneous Approach (ICD-10-PCS; 2021-10-03)
PROC: 0W9G3ZZ Drainage of Peritoneal Cavity, Percutaneous Approach (ICD-10-PCS; 2021-10-08)
DX: K70.31 Alcoholic cirrhosis of liver with ascites (principal); K65.2 Spontaneous bacterial peritonitis; I85.10 Secondary esophageal varices without bleeding; D68.4 Acquired coagulation factor deficiency; F10.288 Alcohol dependence with other alcohol-induced disorder; E88.09 Other disorders of plasma-protein metabolism, not elsewhere classified; D69.59 Other secondary thrombocytopenia; E03.9 Hypothyroidism, unspecified; I10 Essential (primary) hypertension; N52.9 Male erectile dysfunction, unspecified; G62.9 Polyneuropathy, unspecified; Z87.891 Personal history of nicotine dependence; I86.8 Varicose veins of other specified sites; E87.6 Hypokalemia; E83.42 Hypomagnesemia; I87.2 Venous insufficiency (chronic) (peripheral); B19.20 Unspecified viral hepatitis C without hepatic coma; F14.10 Cocaine abuse, uncomplicated

== ENCOUNTER → 2021-10-15 | Outpatient (REF) | payer MEDICARE, MEDICAID ==
[~2021-10-15] MED LIST: ALDA50TA2 PO; FOLI1TAB11 PO; LACT20EL PO; LEVO25TA5 PO; POTA1TAB14 PO; TORS20TA2 PO; VITMTA PO; XIFA550T PO
== END ==
LOC: M SFHCCAPE 10:42
PROVIDERS: ATTEND Physician Assistant
DX: K72.90 Hepatic failure, unspecified without coma (principal); K74.60 Unspecified cirrhosis of liver; B19.20 Unspecified viral hepatitis C without hepatic coma; E03.9 Hypothyroidism, unspecified

== ENCOUNTER → 2022-01-09 | Outpatient (CLI) | payer MEDICARE, MEDICAID | LOC: M CLY 09:38 | PROVIDERS: ATTEND Physician Assistant | DX: K70.31 Alcoholic cirrhosis of liver with ascites (principal) ==

== ENCOUNTER → 2022-01-09 | Outpatient (REF) | payer MEDICARE, MEDICAID ==
[2022-01-09 16:04] LABS: BASO % 0.9 % (0.0-1.0); EOS # 0.2 10^3/uL (0.0-0.5); EOS % 3.9 % (0.0-3.0); HEMATOCRIT 38.8 % (42.0-52.0); HEMOGLOBIN 13.1 g/dl (13.5-17.5); LYMPH # 0.9 10^3/uL (1.5-5.0); MEAN CORPUSCULAR HEMOGLOBIN 33.9 pg (27.0-33.0); MEAN CORPUSCULAR HGB CONC 33.8 g/dl (32.0-36.5); MEAN CORPUSCULAR VOLUME 100.3 fl (80.0-96.0); MONO # 0.5 10^3/uL (0.0-0.8); MONO % 9.9 % (2.0-8.0); NEUTROPHILS % 64.9 % (36.0-66.0); RED BLOOD COUNT 3.87 10^6/uL (4.30-6.10); WHITE BLOOD COUNT 4.6 10^3/uL (4.0-10.0)
[2022-01-09 16:11] LABS: PLATELET COUNT, AUTOMATED 54 10^3/uL (150-450)
[2022-01-09 16:15] LABS: INR 1.44
[2022-01-09 16:37] LABS: ALBUMIN 2.3 GM/DL (3.2-5.2); ALT/SGPT 75 U/L (12-78); BILIRUBIN,DIRECT 3.5 MG/DL (0.0-0.2); BILIRUBIN,TOTAL 6.4 MG/DL (0.2-1.0); BLOOD UREA NITROGEN 14 MG/DL (7-18); CALCIUM LEVEL 8.2 MG/DL (8.8-10.2); CARBON DIOXIDE LEVEL 32 MEQ/L (21-32); CHLORIDE LEVEL 102 MEQ/L (98-107); CREATININE FOR GFR 0.87 MG/DL (0.70-1.30); FREE T4 1.01 NG/DL (0.76-1.46); GLOMERULAR FILTRATION RATE > 60.0 (>49); GLUCOSE, FASTING 141 MG/DL (70-100); POTASSIUM SERUM 4.8 MEQ/L (3.5-5.1); SODIUM LEVEL 134 MEQ/L (136-145); TOTAL PROTEIN 6.5 GM/DL (6.4-8.2)
[2022-01-09 16:38] LABS: TOTAL 25(OH) VITAMIN D 21.2 NG/ML (30.0-100.0); VITAMIN B12 LEVEL 1400 PG/ML
[2022-01-09 16:39] LABS: FOLATE 11.7 NG/ML
[2022-01-09 17:41] LABS: HEMOGLOBIN A1c 4.1 %
== END ==
LOC: M SFHCCLAY 09:31
PROVIDERS: ATTEND Physician Assistant
DX: E03.9 Hypothyroidism, unspecified (principal); K72.90 Hepatic failure, unspecified without coma; Z79.899 Other long term (current) drug therapy

== ENCOUNTER → 2022-01-09 | Outpatient (CLI) | payer MEDICARE, MEDICAID | LOC: M WHC 07:37 | PROVIDERS: ATTEND Physician Assistant | DX: K74.60 Unspecified cirrhosis of liver (principal) ==

== ENCOUNTER → 2022-01-21 | Outpatient (CLI) | payer MEDICARE, MEDICAID ==
[~2022-01-21] MED LIST changes: +CIPR500S PO; +FURO40TA2 PO
[2022-01-21 19:06] LABS: HEPATITIS B SURFACE ANTIBODY NEGATIVE (POSITIVE); HEPATITIS B SURFACE ANTIGEN NEGATIVE (NEGATIVE); HIV 1&2 SCREEN CENTAUR NEGATIVE (NEGATIVE)
[2022-01-24 21:07] LABS: HEPATITIS A IgG TOTAL Negative (Negative); HEPATITIS B CORE ANTIBODY IGG Negative (Negative); HEPATITIS C QUANTITATION 423000 IU/mL (.); HEPATITIS C VIRUS GENOTYPE 1a (.)
== END ==
LOC: M PLALAB 14:38
PROVIDERS: ATTEND Internal Medicine Infectious Disease
DX: B18.2 Chronic viral hepatitis C (principal)

== ENCOUNTER → 2022-02-04 | Outpatient (CLI) | payer MEDICARE, MEDICAID ==
[2022-02-04 16:09] VITALS: BP 118/65
== END ==
LOC: M IRPRO 14:09
PROVIDERS: ATTEND Student in an Organized Health Care Education/Training Program
DX: K70.31 Alcoholic cirrhosis of liver with ascites (principal); D64.9 Anemia, unspecified

== ENCOUNTER → 2022-02-10 | Outpatient (REF) | payer MEDICARE, MEDICAID ==
[2022-02-10 11:28] LABS: BASO # 0.1 10^3/uL (0.0-0.2); BASO % 0.9 % (0.0-1.0); EOS # 0.4 10^3/uL (0.0-0.5); EOS % 7.4 % (0.0-3.0); HEMATOCRIT 35.5 % (42.0-52.0); HEMOGLOBIN 12.3 g/dl (13.5-17.5); LYMPH % 18.7 % (24.0-44.0); MEAN CORPUSCULAR HEMOGLOBIN 35.9 pg (27.0-33.0); MEAN CORPUSCULAR HGB CONC 34.6 g/dl (32.0-36.5); MEAN CORPUSCULAR VOLUME 103.5 fl (80.0-96.0); MONO # 0.7 10^3/uL (0.0-0.8); MONO % 12.5 % (2.0-8.0); NEUTROPHILS # 3.3 10^3/uL (1.5-8.5); NEUTROPHILS % 59.1 % (36.0-66.0); PLATELET COUNT, AUTOMATED 64 10^3/uL (150-450); RED BLOOD COUNT 3.43 10^6/uL (4.30-6.10); WHITE BLOOD COUNT 5.5 10^3/uL (4.0-10.0)
[2022-02-10 11:36] LABS: INR 1.55
[2022-02-10 11:37] LABS: PARTIAL THROMBOPLASTIN TIME 41.9 SECONDS (25.9-37.0)
[2022-02-10 11:53] LABS: ALBUMIN 1.9 GM/DL (3.2-5.2); ALT/SGPT 83 U/L (12-78); BLOOD UREA NITROGEN 20 MG/DL (7-18); CALCIUM LEVEL 7.7 MG/DL (8.8-10.2); CARBON DIOXIDE LEVEL 30 MEQ/L (21-32); CHLORIDE LEVEL 101 MEQ/L (98-107); CREATININE FOR GFR 0.76 MG/DL (0.70-1.30); GLOMERULAR FILTRATION RATE > 60.0 (>49); GLUCOSE, FASTING 88 MG/DL (70-100); POTASSIUM SERUM 4.4 MEQ/L (3.5-5.1); SODIUM LEVEL 133 MEQ/L (136-145); TOTAL PROTEIN 6.1 GM/DL (6.4-8.2)
== END ==
LOC: M LABDRAWC 11:04
PROVIDERS: ATTEND Student in an Organized Health Care Education/Training Program
DX: K74.60 Unspecified cirrhosis of liver (principal)

== ENCOUNTER → 2022-02-21 | Outpatient (CLI) | payer MEDICARE, MEDICAID | LOC: M PLARAD 08:31 | PROVIDERS: ATTEND Physician Assistant | DX: R16.2 Hepatomegaly with splenomegaly, not elsewhere classified (principal); R18.8 Other ascites; I86.8 Varicose veins of other specified sites ==

== ENCOUNTER → 2022-02-26 | Outpatient (CLI) | payer MEDICARE, MEDICAID ==
[2022-02-26 14:38] VITALS: BP 121/60
[2022-02-26 14:48] LABS: ALBUMIN 1.8 GM/DL (3.2-5.2); ALT/SGPT 60 U/L (12-78); BILIRUBIN,DIRECT 7.6 MG/DL (0.0-0.2); BILIRUBIN,TOTAL 9.8 MG/DL (0.2-1.0); ETHYL ALCOHOL (ETHANOL) < 0.003 % (0.000-0.010); TOTAL PROTEIN 6.3 GM/DL (6.4-8.2)
== END ==
LOC: M IRPRO 13:16
PROVIDERS: ATTEND Student in an Organized Health Care Education/Training Program
DX: K70.30 Alcoholic cirrhosis of liver without ascites (principal)

== ENCOUNTER → 2022-03-05 | Outpatient (CLI) | payer MEDICARE, MEDICAID ==
[~2022-03-05] MED LIST changes: +ATIV1TAB7 PO; +HYOS125TA PO; +IBUP1TAB7 PO; +MORP1SOL SL; +POTA10TA17 PO; +SPIR100T3 PO
[2022-03-05 13:04] VITALS: BP 132/74
== END ==
LOC: M IRPRO 12:25
PROVIDERS: ATTEND Student in an Organized Health Care Education/Training Program
DX: K70.31 Alcoholic cirrhosis of liver with ascites (principal)

== ENCOUNTER → 2022-03-12 | Outpatient (CLI) | payer MEDICARE, MEDICAID ==
[~2022-03-12] MED LIST changes: -ATIV1TAB7 PO; -HYOS125TA PO; -IBUP1TAB7 PO; -MORP1SOL SL; -POTA10TA17 PO; -SPIR100T3 PO
[2022-03-12 14:41] VITALS: BP 119/70
== END ==
LOC: M IRPRO 13:00
PROVIDERS: ATTEND Student in an Organized Health Care Education/Training Program
DX: K70.31 Alcoholic cirrhosis of liver with ascites (principal)

== ENCOUNTER → 2022-03-19 | Outpatient (CLI) | payer MEDICARE, MEDICAID ==
[~2022-03-19] MED LIST changes: +SPIR100T3 PO
[2022-03-19 16:25] VITALS: BP 136/75
== END ==
LOC: M IRPRO 14:45
PROVIDERS: ATTEND Student in an Organized Health Care Education/Training Program
DX: K70.31 Alcoholic cirrhosis of liver with ascites (principal)

== ENCOUNTER 2022-03-26 11:28 | Inpatient (IN) | payer MEDICARE, MEDICAID ==
[2022-03-26] VITALS (24 sets, daily range): BP systolic 78–121; BP diastolic 44–76
[~2022-03-26] VITALS: Ht 185.4 cm; Wt 124.7 kg
[2022-03-26 12:03] LABS: VENOUS BASE EXCESS -11.8 (-2.0-2.0); VENOUS HCO3 13.5 MEQ/L (23.0-27.0); VENOUS PARTIAL PRESSURE CO2 29.1 mmHg (38.0-50.0); VENOUS PARTIAL PRESSURE O2 44.7 mmHg (30.0-50.0); VENOUS PH 7.283 UNITS (7.330-7.430); VENOUS STANDARD HCO3 14.8 MEQ/L; VENOUS TOTAL CO2 14.4 MEQ/L (24.0-28.0)
[2022-03-26 12:10] LABS: HEMATOCRIT 31.8 % (42.0-52.0); HEMOGLOBIN 11.3 g/dl (13.5-17.5); MEAN CORPUSCULAR HEMOGLOBIN 36.2 pg (27.0-33.0); MEAN CORPUSCULAR HGB CONC 35.5 g/dl (32.0-36.5); MEAN CORPUSCULAR VOLUME 101.9 fl (80.0-96.0); RED BLOOD COUNT 3.12 10^6/uL (4.30-6.10); WHITE BLOOD COUNT 4.5 10^3/uL (4.0-10.0)
[2022-03-26 12:11] LABS: PLATELET COUNT, AUTOMATED 54 10^3/uL (150-450)
[2022-03-26] MEDS ORDERED: NS 2,220 ML in IV 1 EA IV ONE (12:20)
[2022-03-26 12:24] LABS: INR 2.6; PROTHROMBIN TIME 28.2 SECONDS (12.7-14.5)
[2022-03-26 12:25] LABS: PARTIAL THROMBOPLASTIN TIME 51.3 SECONDS (25.9-37.0)
[2022-03-26] MEDS: NS 1,000 ML IV ONE (12:30)
[2022-03-26 12:55] LABS: LYMPHOCYTES 5 % (16-44); METAMYELOCYTES 10 % (0-0); MONOCYTES 6 % (0-5); MYELOCYTES 1 % (0-0); NEUTROPHILS 38 % (28-66); PLATELET ESTIMATE DECREASED (NORMAL)
[2022-03-26] MEDS ORDERED: PIPERACILLIN/TAZOBACTAM SOD 4.5 GM in D5W MINI-BAG PLUS 50 ML IV ONE (12:55)
[2022-03-26] MEDS ORDERED: DEXTROSE 50% 50 ML SYRINGE IV STA ×5 (13:03→22:28)
[2022-03-26 13:04] LABS: ALBUMIN 1.5 GM/DL (3.2-5.2); BILIRUBIN,DIRECT 3.8 MG/DL (0.0-0.2); BILIRUBIN,TOTAL 5.1 MG/DL (0.2-1.0); CALCIUM LEVEL 8.3 MG/DL (8.8-10.2); CREATININE FOR GFR 2.64 MG/DL (0.70-1.30); GLOMERULAR FILTRATION RATE 26.5 (>49); POTASSIUM SERUM 4.7 MEQ/L (3.5-5.1); TOTAL PROTEIN 5.1 GM/DL (6.4-8.2)
[2022-03-26] MEDS ORDERED: D10W/0.45% SODIUM CHLORIDE 1,000 ML IV SCH ×4 (14:55→20:10)
[2022-03-26] MEDS ORDERED: fentaNYL 100 MCG/2 ML INJECTION IV ONE (16:10)
[2022-03-26] MEDS ORDERED: LEVO25TA5 PO (16:58)
[2022-03-26] MEDS ORDERED: FURO40TA2 PO (16:58)
[2022-03-26] MEDS ORDERED: XIFA550T PO (16:58)
[2022-03-26] MEDS ORDERED: IBUP1TAB7 PO (16:58)
[2022-03-26] MEDS ORDERED: POTA10TA17 PO (16:58)
[2022-03-26] MEDS ORDERED: LACT20EL PO (16:58)
[2022-03-26] MEDS ORDERED: VITMTA PO (16:58)
[2022-03-26] MEDS ORDERED: FOLI1TAB11 PO (16:58)
[2022-03-26] MEDS ORDERED: HOME MED LIST COMPLETE! XX SCH (17:00)
[2022-03-26] MEDS ORDERED: MIDODRINE 5 MG TAB PO ONE (17:40)
[2022-03-26] MEDS ORDERED: D10W/0.45% SODIUM CHLORIDE 1,000 ML IV ONE (17:40)
[2022-03-26] MEDS: DEXTROSE 50% 50 ML SYRINGE IV SCH ×2 (17:50→19:00)
[2022-03-26 18:29] LABS: HEMATOCRIT 30.6 % (42.0-52.0); HEMOGLOBIN 10.2 g/dl (13.5-17.5); MEAN CORPUSCULAR HEMOGLOBIN 34.8 pg (27.0-33.0); MEAN CORPUSCULAR HGB CONC 33.3 g/dl (32.0-36.5); MEAN CORPUSCULAR VOLUME 104.4 fl (80.0-96.0); RED BLOOD COUNT 2.93 10^6/uL (4.30-6.10)
[2022-03-26 18:32] LABS: PLATELET COUNT, AUTOMATED 40 10^3/uL (150-450)
[2022-03-26 18:37] LABS: ALBUMIN 1.3 GM/DL (3.2-5.2); ALT/SGPT 37 U/L (12-78); BILIRUBIN,TOTAL 4.3 MG/DL (0.2-1.0); BLOOD UREA NITROGEN 48 MG/DL (7-18); C REACTIVE PROTEIN QUANTITATIV 8.81 MG/DL (0.00-0.30); CALCIUM LEVEL 7.2 MG/DL (8.8-10.2); CARBON DIOXIDE LEVEL 17 MEQ/L (21-32); CHLORIDE LEVEL 101 MEQ/L (98-107); CREATININE FOR GFR 2.56 MG/DL (0.70-1.30); GLOMERULAR FILTRATION RATE 27.4 (>49); GLUCOSE, FASTING 65 MG/DL (70-100); POTASSIUM SERUM 4.2 MEQ/L (3.5-5.1); SODIUM LEVEL 128 MEQ/L (136-145); TOTAL PROTEIN 4.4 GM/DL (6.4-8.2)
[2022-03-26 18:38] LABS: CK-MB VALUE MASS 2.9 NG/ML (<3.6); MB/CK RELATIVE INDEX 3.26 (< OR =4)
[2022-03-26 18:39] LABS: OSMOLALITY SERUM 272 MOSM/KG (275-295)
[2022-03-26] MEDS: LEVOTHYROXINE 100MCG (0.1MG) 5ML SDV PF (SOLUTION FORM) IV SCH (19:00)
[2022-03-26] MEDS ORDERED: VANCOMYCIN HCL 1,000 MG, VIAL MATE ADAPTER 1 EACH in NS 250 ML IV SCH (19:10)
[2022-03-26] MEDS: SODIUM BICARBONATE 150 MEQ in D5W 1,000 ML IV SCH ×3 (19:20)
[2022-03-26 19:23] LABS: ERYTHROCYTE SEDIMENTATION RATE 26 mm/hr (0-20)
[2022-03-26] MEDS ORDERED: OCTREOTIDE ACETATE 100MCG/ML VIAL **IV ADMINISTRATION ONLY IV ONE (19:30)
[2022-03-26] MEDS: PIPERACILLIN/TAZOBACTAM SOD 3.375 GM in D5W MINI-BAG PLUS 50 ML IV SCH (20:09)
[2022-03-26] MEDS ORDERED: NOREPINEPHRINE 4 MG/4 ML AMP As Ordered ONE (20:34)
[2022-03-26 20:38] LABS: ANISOCYTOSIS 2+; ATYPICAL LYMPH 2 % (0-5); EOSINOPHILS 1 % (0-3); LYMPHOCYTES 3 % (16-44); METAMYELOCYTES 16 % (0-0); MONOCYTES 1 % (0-5); MYELOCYTES 4 % (0-0); NEUTROPHILS 25 % (28-66); OVALOCYTES 2+; PLATELET ESTIMATE MARKED DECREASE (NORMAL); POIKILOCYTOSIS 2+
[2022-03-26 20:39] LABS: TOXIC VACUOLATION 1+
[2022-03-26] MEDS ORDERED: NOREPINEPHRINE BITARTRATE 8 MG in D5W 492 ML IV SCH ×2 (20:45→21:00)
[2022-03-26] MEDS ORDERED: NOREPINEPHRINE BITARTRATE 16 MG in D5W 484 ML IV SCH ×2 (21:00)
[2022-03-26] MEDS ORDERED: GLUCOSE 4GM CHEW TABLET PO PRN (21:05)
[2022-03-26] MEDS ORDERED: GLUCAGON INJ 1MG VIAL SC PRN (21:05)
[2022-03-26 21:53] LABS: HEPATITIS B SURFACE ANTIGEN NEGATIVE (NEGATIVE)
[2022-03-26] MEDS ORDERED: VANCOMYCIN HCL 1,000 MG, VIAL MATE ADAPTER 1 EACH in NS 250 ML IV ONE ×2 (22:00→23:00)
[2022-03-26 22:21] LABS: HEPATITIS B CORE ANTIBODY IGM NEGATIVE (NEGATIVE)
[2022-03-26 22:27] LABS: HEPATITIS C VIRUS ABY INDEX > 11.0 INDEX (<0.8)
[2022-03-26] MEDS: predniSONE 20 MG TAB PO SCH (22:41)
[2022-03-26] MEDS: MULTIVITAMINS/MINERALS THERAP 1 TAB PO SCH (22:41)
[2022-03-26] MEDS: PANTOPRAZOLE 40MG VIAL IV SCH (22:41)
[2022-03-27] VITALS (53 sets, daily range): BP systolic 69–122; BP diastolic 39–68
[2022-03-27] MEDS: INSULIN LISPRO (NovoLOG) PER UNIT SC SCH ×5 (01:02→23:17)
[2022-03-27] MEDS: PIPERACILLIN/TAZOBACTAM SOD 3.375 GM in D5W MINI-BAG PLUS 50 ML IV SCH ×2 (02:13→08:39)
[2022-03-27] MEDS ORDERED: ONDANSETRON 4MG/2ML VIAL IV ONE (02:25)
[2022-03-27 02:44] LABS: CALCIUM LEVEL 6.6 MG/DL (8.8-10.2); CREATININE FOR GFR 2.27 MG/DL (0.70-1.30); GLOMERULAR FILTRATION RATE 31.5 (>49); MAGNESIUM LEVEL 1.4 MG/DL (1.8-2.4); POTASSIUM SERUM 4.6 MEQ/L (3.5-5.1)
[2022-03-27] MEDS ORDERED: MAG SULF 1GM/100ML (MAG RUN) 1 GM in IV 1 EA IV ONE (04:40)
[2022-03-27 07:03] LABS: HEMATOCRIT 28.6 % (42.0-52.0); HEMOGLOBIN 10.3 g/dl (13.5-17.5); RED BLOOD COUNT 2.86 10^6/uL (4.30-6.10); WHITE BLOOD COUNT 6.7 10^3/uL (4.0-10.0)
[2022-03-27 07:04] LABS: PLATELET COUNT, AUTOMATED 50 10^3/uL (150-450)
[2022-03-27 07:27] LABS: INR 2.71; PROTHROMBIN TIME 29.1 SECONDS (12.7-14.5)
[2022-03-27 07:28] LABS: PARTIAL THROMBOPLASTIN TIME 59.5 SECONDS (25.9-37.0)
[2022-03-27 07:53] LABS: ALBUMIN 1.7 GM/DL (3.2-5.2); BILIRUBIN,TOTAL 4.4 MG/DL (0.2-1.0); CALCIUM LEVEL 6.9 MG/DL (8.8-10.2); CREATININE FOR GFR 2.23 MG/DL (0.70-1.30); GLOMERULAR FILTRATION RATE 32.2 (>49); MAGNESIUM LEVEL 1.9 MG/DL (1.8-2.4); TOTAL PROTEIN 4.4 GM/DL (6.4-8.2)
[2022-03-27 08:11] LABS: ATYPICAL LYMPH 1 % (0-5); METAMYELOCYTES 4 % (0-0); MONOCYTES 2 % (0-5); NEUTROPHILS 57 % (28-66); PLATELET ESTIMATE DECREASED (NORMAL)
[2022-03-27 08:12] LABS: BURR CELLS 2+; MICROCYTOSIS 1+; OVALOCYTES 1+; TEAR DROP CELLS 1+
[2022-03-27] MEDS: FOLIC ACID 1 MG TAB PO SCH (08:40)
[2022-03-27] MEDS: MULTIVITAMINS/MINERALS THERAP 1 TAB PO SCH ×2 (08:40→19:38)
[2022-03-27] MEDS: THIAMINE 100 MG TAB PO SCH (08:40)
[2022-03-27] MEDS: predniSONE 20 MG TAB PO SCH (08:40)
[2022-03-27] MEDS: PANTOPRAZOLE 40MG VIAL IV SCH ×2 (08:41→19:37)
[2022-03-27] MEDS: LEVOTHYROXINE 100MCG (0.1MG) 5ML SDV PF (SOLUTION FORM) IV SCH (08:41)
[2022-03-27] MEDS ORDERED: NOREPINEPHRINE BITARTRATE 16 MG in D5W 484 ML IV SCH (09:00)
[2022-03-27] MEDS: NOREPINEPHRINE BITARTRATE 8 MG in D5W 492 ML IV SCH (09:13)
[2022-03-27] MEDS ORDERED: VANCOMYCIN HCL 750 MG, VIAL MATE ADAPTER 1 EACH in NS 250 ML IV SCH ×2 (10:00→11:00)
[2022-03-27 12:21] LABS: CALCIUM LEVEL 7.4 MG/DL (8.8-10.2); CREATININE FOR GFR 2.1 MG/DL (0.70-1.30); GLOMERULAR FILTRATION RATE 34.5 (>49); POTASSIUM SERUM 4.9 MEQ/L (3.5-5.1)
[2022-03-27] MEDS: HYDROCORTISONE 100 MG/2 ML VIAL (J1720 PER 1) IV SCH ×2 (13:59→19:37)
[2022-03-27] MEDS: PIPERACILLIN/TAZOBACTAM SOD 4.5 GM in D5W MINI-BAG PLUS 50 ML IV SCH ×2 (13:59→19:38)
[2022-03-27] MEDS ORDERED: CALCIUM GLUCONATE 1,000 MG in D5W MINI-BAG PLUS 100 ML IV ONE (14:00)
[2022-03-27] MEDS: rifAXIMin 550 MG TAB (XIFAXAN) PO SCH (19:38)
[2022-03-28] VITALS (56 sets, daily range): BP systolic 94–121; BP diastolic 50–72
[2022-03-28 00:38] LABS: CALCIUM LEVEL 7.1 MG/DL (8.8-10.2); CREATININE FOR GFR 2.25 MG/DL (0.70-1.30); GLOMERULAR FILTRATION RATE 31.8 (>49); MAGNESIUM LEVEL 1.8 MG/DL (1.8-2.4); POTASSIUM SERUM 4.8 MEQ/L (3.5-5.1)
[2022-03-28] MEDS ORDERED: HYDROCORTISONE 100 MG/2 ML VIAL (J1720 PER 1) IM ONE (02:00)
[2022-03-28] MEDS: NOREPINEPHRINE BITARTRATE 8 MG in D5W 492 ML IV SCH ×4 (03:00→19:28)
[2022-03-28 04:42] LABS: HEMATOCRIT 28.9 % (42.0-52.0); HEMOGLOBIN 10.3 g/dl (13.5-17.5); MEAN CORPUSCULAR HEMOGLOBIN 35.5 pg (27.0-33.0); MEAN CORPUSCULAR HGB CONC 35.6 g/dl (32.0-36.5); MEAN CORPUSCULAR VOLUME 99.7 fl (80.0-96.0); WHITE BLOOD COUNT 14.3 10^3/uL (4.0-10.0)
[2022-03-28 04:43] LABS: PLATELET COUNT, AUTOMATED 41 10^3/uL (150-450)
[2022-03-28 04:50] LABS: INR 2.49; PROTHROMBIN TIME 27.3 SECONDS (12.7-14.5)
[2022-03-28 04:51] LABS: PARTIAL THROMBOPLASTIN TIME 54.8 SECONDS (25.9-37.0)
[2022-03-28 05:05] LABS: ALBUMIN 1.9 GM/DL (3.2-5.2); BILIRUBIN,TOTAL 5.9 MG/DL (0.2-1.0); CALCIUM LEVEL 7.1 MG/DL (8.8-10.2); CREATININE FOR GFR 2.35 MG/DL (0.70-1.30); GLOMERULAR FILTRATION RATE 30.3 (>49); MAGNESIUM LEVEL 1.9 MG/DL (1.8-2.4); POTASSIUM SERUM 4.9 MEQ/L (3.5-5.1); TOTAL PROTEIN 4.7 GM/DL (6.4-8.2)
[2022-03-28 05:10] LABS: LYMPHOCYTES 4 % (16-44); METAMYELOCYTES 2 % (0-0); MONOCYTES 1 % (0-5); NEUTROPHILS 81 % (28-66)
[2022-03-28 05:11] LABS: PLATELET ESTIMATE DECREASED (NORMAL); SCHISTOCYTES 2+
[2022-03-28] MEDS: INSULIN LISPRO (NovoLOG) PER UNIT SC SCH ×4 (06:00→23:09)
[2022-03-28] MEDS ORDERED: LIDOCAINE 1% MDV 20ML VIAL As Ordered ONE (08:02)
[2022-03-28] MEDS ORDERED: MORPHINE 2 MG/ML 1ML VIAL IV ONE (08:45)
[2022-03-28] MEDS: FOLIC ACID 1 MG TAB PO SCH (08:50)
[2022-03-28] MEDS: MULTIVITAMINS/MINERALS THERAP 1 TAB PO SCH ×2 (08:50→19:46)
[2022-03-28] MEDS: rifAXIMin 550 MG TAB (XIFAXAN) PO SCH ×2 (08:50→19:47)
[2022-03-28] MEDS: THIAMINE 100 MG TAB PO SCH (08:50)
[2022-03-28] MEDS: predniSONE 20 MG TAB PO SCH (08:50)
[2022-03-28] MEDS: HYDROCORTISONE 100 MG/2 ML VIAL (J1720 PER 1) IV SCH ×3 (08:50→23:10)
[2022-03-28] MEDS: LEVOTHYROXINE 100MCG (0.1MG) 5ML SDV PF (SOLUTION FORM) IV SCH (08:51)
[2022-03-28] MEDS: PANTOPRAZOLE 40MG VIAL IV SCH ×2 (08:51→19:47)
[2022-03-28] MEDS ORDERED: PIPERACILLIN/TAZOBACTAM SOD 4.5 GM in D5W MINI-BAG PLUS 50 ML IV SCH (12:00)
[2022-03-28] MEDS: FUROSEMIDE injection 250 MG in D5W 225 ML IV SCH (13:03)
[2022-03-28] MEDS: cefTRIAXone SOD 2 GM in D5W MINI-BAG PLUS 50 ML IV SCH (13:05)
[2022-03-28 14:15] LABS: CALCIUM LEVEL 7.1 MG/DL (8.8-10.2); CREATININE FOR GFR 2.29 MG/DL (0.70-1.30); GLOMERULAR FILTRATION RATE 31.2 (>49); POTASSIUM SERUM 4.6 MEQ/L (3.5-5.1)
[2022-03-28] MEDS: SODIUM CHLORIDE 0.9% INJ 10 ML SYR IV SCH (17:08)
[2022-03-28] MEDS: LACTULOSE 20 GM/30 ML SYRUP UD PO SCH ×2 (17:14→21:16)
[2022-03-29] VITALS (54 sets, daily range): BP systolic 85–116; BP diastolic 50–72
[2022-03-29 01:03] LABS: CALCIUM LEVEL 7.7 MG/DL (8.8-10.2); CREATININE FOR GFR 2.02 MG/DL (0.70-1.30); POTASSIUM SERUM 4.4 MEQ/L (3.5-5.1)
[2022-03-29 06:24] LABS: HEMATOCRIT 24.9 % (42.0-52.0); HEMOGLOBIN 9.1 g/dl (13.5-17.5); MEAN CORPUSCULAR HGB CONC 36.5 g/dl (32.0-36.5); MEAN CORPUSCULAR VOLUME 98.4 fl (80.0-96.0); RED BLOOD COUNT 2.53 10^6/uL (4.30-6.10); WHITE BLOOD COUNT 10.7 10^3/uL (4.0-10.0)
[2022-03-29 06:30] LABS: PLATELET COUNT, AUTOMATED 20 10^3/uL (150-450)
[2022-03-29] MEDS: LACTULOSE 20 GM/30 ML SYRUP UD PO SCH ×3 (06:31→21:55)
[2022-03-29 06:36] LABS: INR 2.43; PROTHROMBIN TIME 26.8 SECONDS (12.7-14.5)
[2022-03-29 06:37] LABS: PARTIAL THROMBOPLASTIN TIME 56.2 SECONDS (25.9-37.0)
[2022-03-29] MEDS: SODIUM CHLORIDE 0.9% INJ 10 ML SYR IV SCH ×2 (06:39→18:00)
[2022-03-29 06:55] LABS: ALBUMIN 2.1 GM/DL (3.2-5.2); BILIRUBIN,TOTAL 5.8 MG/DL (0.2-1.0); CALCIUM LEVEL 7.8 MG/DL (8.8-10.2); CREATININE FOR GFR 1.95 MG/DL (0.70-1.30); GLOMERULAR FILTRATION RATE 37.5 (>49); MAGNESIUM LEVEL 2.2 MG/DL (1.8-2.4); POTASSIUM SERUM 4.6 MEQ/L (3.5-5.1); TOTAL PROTEIN 4.7 GM/DL (6.4-8.2)
[2022-03-29 06:58] LABS: LYMPHOCYTES 2 % (16-44); MONOCYTES 4 % (0-5); NEUTROPHILS 92 % (28-66)
[2022-03-29 07:00] LABS: CRENATED RBC 1+; POIKILOCYTOSIS 1+
[2022-03-29 07:01] LABS: ANISOCYTOSIS 1+; PLATELET ESTIMATE MARKED DECREASE (NORMAL); TEAR DROP CELLS 1+
[2022-03-29 07:02] LABS: OVALOCYTES 1+; POLYCHROMASIA 1+
[2022-03-29] MEDS: INSULIN LISPRO (NovoLOG) PER UNIT SC SCH ×4 (07:29→23:36)
[2022-03-29] MEDS: NOREPINEPHRINE BITARTRATE 8 MG in D5W 492 ML IV SCH (09:30)
[2022-03-29] MEDS: LEVOTHYROXINE 100MCG (0.1MG) 5ML SDV PF (SOLUTION FORM) IV SCH (09:59)
[2022-03-29] MEDS: PANTOPRAZOLE 40MG VIAL IV SCH ×2 (10:00→20:09)
[2022-03-29] MEDS: HYDROCORTISONE 100 MG/2 ML VIAL (J1720 PER 1) IV SCH ×3 (10:00→23:36)
[2022-03-29] MEDS: predniSONE 20 MG TAB PO SCH (10:01)
[2022-03-29] MEDS: THIAMINE 100 MG TAB PO SCH (10:01)
[2022-03-29] MEDS: rifAXIMin 550 MG TAB (XIFAXAN) PO SCH ×2 (10:01→20:09)
[2022-03-29] MEDS: FOLIC ACID 1 MG TAB PO SCH (10:01)
[2022-03-29] MEDS: MULTIVITAMINS/MINERALS THERAP 1 TAB PO SCH ×2 (10:01→20:09)
[2022-03-29] MEDS: FUROSEMIDE injection 250 MG in D5W 225 ML IV SCH (10:19)
[2022-03-29 12:19] LABS: CREATININE FOR GFR 1.97 MG/DL (0.70-1.30); GLOMERULAR FILTRATION RATE 37.1 (>49); POTASSIUM SERUM 4.4 MEQ/L (3.5-5.1)
[2022-03-29] MEDS: cefTRIAXone SOD 2 GM in D5W MINI-BAG PLUS 50 ML IV SCH (12:38)
[2022-03-29] MEDS: MIDODRINE 5 MG TAB PO SCH ×2 (12:38→17:21)
[2022-03-29 17:53] LABS: VENOUS HCO3 20.9 MEQ/L (23.0-27.0); VENOUS O2 SATURATION 99.4 % (60.0-80.0); VENOUS PARTIAL PRESSURE CO2 33.1 mmHg (38.0-50.0); VENOUS PARTIAL PRESSURE O2 220.4 mmHg (30.0-50.0); VENOUS PH 7.419 UNITS (7.330-7.430)
[2022-03-30] VITALS (45 sets, daily range): BP systolic 90–114; BP diastolic 50–73
[2022-03-30 04:03] LABS: HEMATOCRIT 26.8 % (42.0-52.0); HEMOGLOBIN 9.7 g/dl (13.5-17.5); MEAN CORPUSCULAR HEMOGLOBIN 35.4 pg (27.0-33.0); MEAN CORPUSCULAR HGB CONC 36.2 g/dl (32.0-36.5); MEAN CORPUSCULAR VOLUME 97.8 fl (80.0-96.0); RED BLOOD COUNT 2.74 10^6/uL (4.30-6.10); WHITE BLOOD COUNT 11.1 10^3/uL (4.0-10.0)
[2022-03-30 04:04] LABS: PLATELET COUNT, AUTOMATED 26 10^3/uL (150-450)
[2022-03-30 04:12] LABS: INR 2.36; PROTHROMBIN TIME 26.2 SECONDS (12.7-14.5)
[2022-03-30 04:13] LABS: PARTIAL THROMBOPLASTIN TIME 48.5 SECONDS (25.9-37.0)
[2022-03-30 04:14] LABS: ALBUMIN 2.1 GM/DL (3.2-5.2); BILIRUBIN,TOTAL 5.7 MG/DL (0.2-1.0); CALCIUM LEVEL 7.4 MG/DL (8.8-10.2); CREATININE FOR GFR 2.06 MG/DL (0.70-1.30); GLOMERULAR FILTRATION RATE 35.2 (>49); POTASSIUM SERUM 4.1 MEQ/L (3.5-5.1); TOTAL PROTEIN 4.8 GM/DL (6.4-8.2)
[2022-03-30 04:15] LABS: CALCIUM LEVEL 7.9 MG/DL (8.8-10.2); CREATININE FOR GFR 2.04 MG/DL (0.70-1.30); GLOMERULAR FILTRATION RATE 35.6 (>49); POTASSIUM SERUM 4.2 MEQ/L (3.5-5.1)
[2022-03-30 05:06] LABS: LYMPHOCYTES 1 % (16-44); MONOCYTES 2 % (0-5); NEUTROPHILS 96 % (28-66)
[2022-03-30 05:07] LABS: ANISOCYTOSIS 1+; CRENATED RBC 1+; MICROCYTOSIS 1+
[2022-03-30 05:08] LABS: PLATELET ESTIMATE MARKED DECREASE (NORMAL)
[2022-03-30] MEDS: INSULIN LISPRO (NovoLOG) PER UNIT SC SCH ×3 (06:00→18:00)
[2022-03-30] MEDS: LACTULOSE 20 GM/30 ML SYRUP UD PO SCH ×3 (06:00→20:08)
[2022-03-30] MEDS: SODIUM CHLORIDE 0.9% INJ 10 ML SYR IV SCH ×2 (06:02→18:00)
[2022-03-30] MEDS: NOREPINEPHRINE BITARTRATE 8 MG in D5W 492 ML IV SCH (06:30)
[2022-03-30] MEDS: LEVOTHYROXINE 100MCG (0.1MG) 5ML SDV PF (SOLUTION FORM) IV SCH (08:28)
[2022-03-30] MEDS: HYDROCORTISONE 100 MG/2 ML VIAL (J1720 PER 1) IV SCH ×2 (08:28→16:26)
[2022-03-30] MEDS: MIDODRINE 5 MG TAB PO SCH ×3 (08:28→16:00)
[2022-03-30] MEDS: THIAMINE 100 MG TAB PO SCH (08:28)
[2022-03-30] MEDS: MULTIVITAMINS/MINERALS THERAP 1 TAB PO SCH ×2 (08:28→20:07)
[2022-03-30] MEDS: PANTOPRAZOLE 40MG VIAL IV SCH ×2 (08:28→20:08)
[2022-03-30] MEDS: rifAXIMin 550 MG TAB (XIFAXAN) PO SCH ×2 (08:29→20:07)
[2022-03-30] MEDS: predniSONE 20 MG TAB PO SCH (08:29)
[2022-03-30] MEDS: FOLIC ACID 1 MG TAB PO SCH (08:29)
[2022-03-30] MEDS: MORPHINE 2 MG/ML 1ML VIAL IV PRN ×4 (10:32→20:08)
[2022-03-30] MEDS: FUROSEMIDE injection 250 MG in D5W 225 ML IV SCH (12:17)
[2022-03-30 13:01] LABS: CALCIUM LEVEL 7.3 MG/DL (8.8-10.2); CREATININE FOR GFR 2.09 MG/DL (0.70-1.30); GLOMERULAR FILTRATION RATE 34.7 (>49); POTASSIUM SERUM 4.2 MEQ/L (3.5-5.1)
[2022-03-30] MEDS: cefTRIAXone SOD 2 GM in D5W MINI-BAG PLUS 50 ML IV SCH (14:00)
[2022-03-31] VITALS: BP 91/55
[2022-03-31] MEDS: HYDROCORTISONE 100 MG/2 ML VIAL (J1720 PER 1) IV SCH ×2 (00:09→08:12)
[2022-03-31] MEDS: MORPHINE 2 MG/ML 1ML VIAL IV PRN ×6 (01:54→22:07)
[2022-03-31 04:00] VITALS: BP 95/52
[2022-03-31] MEDS: SODIUM CHLORIDE 0.9% INJ 10 ML SYR IV SCH ×2 (05:36→16:16)
[2022-03-31] MEDS: LACTULOSE 20 GM/30 ML SYRUP UD PO SCH ×2 (05:36→14:00)
[2022-03-31] MEDS: INSULIN LISPRO (NovoLOG) PER UNIT SC SCH ×3 (05:36→12:00)
[2022-03-31 06:12] LABS: HEMATOCRIT 27.1 % (42.0-52.0); HEMOGLOBIN 9.4 g/dl (13.5-17.5); MEAN CORPUSCULAR HEMOGLOBIN 34.9 pg (27.0-33.0); MEAN CORPUSCULAR HGB CONC 34.7 g/dl (32.0-36.5); MEAN CORPUSCULAR VOLUME 100.7 fl (80.0-96.0); RED BLOOD COUNT 2.69 10^6/uL (4.30-6.10); WHITE BLOOD COUNT 12.1 10^3/uL (4.0-10.0)
[2022-03-31 06:14] LABS: PLATELET COUNT, AUTOMATED 30 10^3/uL (150-450)
[2022-03-31 06:19] LABS: INR 2.29; PROTHROMBIN TIME 25.6 SECONDS (12.7-14.5)
[2022-03-31 06:20] LABS: PARTIAL THROMBOPLASTIN TIME 44.3 SECONDS (25.9-37.0)
[2022-03-31 06:45] LABS: BILIRUBIN,TOTAL 5.1 MG/DL (0.2-1.0); CALCIUM LEVEL 7.5 MG/DL (8.8-10.2); CREATININE FOR GFR 2.45 MG/DL (0.70-1.30); GLOMERULAR FILTRATION RATE 28.9 (>49); POTASSIUM SERUM 4.6 MEQ/L (3.5-5.1); TOTAL PROTEIN 4.9 GM/DL (6.4-8.2)
[2022-03-31 06:46] LABS: ANISOCYTOSIS 1+; LYMPHOCYTES 4 % (16-44); MONOCYTES 5 % (0-5); NEUTROPHILS 91 % (28-66); PLATELET ESTIMATE DECREASED (NORMAL)
[2022-03-31 07:00] VITALS: BP 112/58
[2022-03-31 08:00] VITALS: BP 110/63
[2022-03-31] MEDS: LEVOTHYROXINE 100MCG (0.1MG) 5ML SDV PF (SOLUTION FORM) IV SCH (08:17)
[2022-03-31] MEDS: MIDODRINE 5 MG TAB PO SCH ×2 (08:22→12:00)
[2022-03-31] MEDS: FUROSEMIDE injection 250 MG in D5W 225 ML IV SCH (08:55)
[2022-03-31] MEDS: rifAXIMin 550 MG TAB (XIFAXAN) PO SCH (08:56)
[2022-03-31 09:00] VITALS: BP 108/59
[2022-03-31] MEDS: MULTIVITAMINS/MINERALS THERAP 1 TAB PO SCH (09:00)
[2022-03-31] MEDS: FOLIC ACID 1 MG TAB PO SCH (09:00)
[2022-03-31] MEDS: predniSONE 20 MG TAB PO SCH (09:00)
[2022-03-31] MEDS: PANTOPRAZOLE 40MG VIAL IV SCH (09:00)
[2022-03-31] MEDS: THIAMINE 100 MG TAB PO SCH (09:00)
[2022-03-31] MEDS ORDERED: MORPHINE 2 MG/ML 1ML VIAL IV PRN (09:50)
[2022-03-31] MEDS ORDERED: ACETAMINOPHEN 650 MG SUPP PR PRN (09:50)
[2022-03-31] MEDS ORDERED: SCOPOLAMINE 1MG TRANSDERMAL PATCH TOP PRN (09:50)
[2022-03-31] MEDS ORDERED: ONDANSETRON 4MG/2ML VIAL IV PRN (09:50)
[2022-03-31] MEDS ORDERED: BISACODYL 10 MG SUPP PR PRN (09:50)
[2022-03-31] MEDS ORDERED: HYOSCYAMINE SULFATE 0.125 MG SUBL TABLET PO PRN (09:50)
[2022-03-31 10:00] VITALS: BP 102/55
[2022-03-31] MEDS: cefTRIAXone SOD 2 GM in D5W MINI-BAG PLUS 50 ML IV SCH (13:56)
[2022-03-31] MEDS: LORazepam 2 MG/ML VIAL IV PRN (18:58)
[2022-04-01] MEDS ORDERED: LORazepam 2 MG/ML VIAL As Ordered ONE ×2 (00:07→10:33)
[2022-04-01] MEDS: LORazepam 2 MG/ML VIAL IV PRN ×3 (00:15→21:12)
[2022-04-01] MEDS: MORPHINE 2 MG/ML 1ML VIAL IV PRN ×4 (01:03→17:26)
[2022-04-01] MEDS: SODIUM CHLORIDE 0.9% INJ 10 ML SYR IV SCH ×2 (06:07→17:27)
[2022-04-01] MEDS: SODIUM CHLORIDE 0.9% INJ 10 ML SYR IV PRN ×2 (15:29→21:13)
[2022-04-02] MEDS: SODIUM CHLORIDE 0.9% INJ 10 ML SYR IV SCH (05:17)
[2022-04-02] MEDS: MORPHINE 2 MG/ML 1ML VIAL IV PRN ×2 (05:18→06:45)
[2022-04-02] MEDS: SODIUM CHLORIDE 0.9% INJ 10 ML SYR IV PRN (06:45)
[2022-04-02] MEDS: MORPHINE 10MG/0.5ML ORAL CONCENTRATE SOLUTION U/D SL PRN ×6 (10:41→22:41)
[2022-04-02] MEDS: LORazepam 1 MG TAB PO PRN ×5 (13:50→19:55)
[2022-04-02] MEDS ORDERED: MORPHINE 10MG/0.5ML ORAL CONCENTRATE SOLUTION U/D SL PRN (15:30)
[2022-04-02] MEDS: ATROPINE SULFATE 1% OP SOLN 2 ML BTL SL PRN (19:55)
[2022-04-03] MEDS: MORPHINE 10MG/0.5ML ORAL CONCENTRATE SOLUTION U/D SL PRN ×2 (05:40→11:21)
[2022-04-03] MEDS: ATROPINE SULFATE 1% OP SOLN 2 ML BTL SL PRN ×2 (06:15→11:30)
[2022-04-03] MEDS ORDERED: MORP1SOL SL (09:32)
[2022-04-03] MEDS ORDERED: ATIV1TAB7 PO (09:32)
[2022-04-03] MEDS ORDERED: HYOS125TA PO (09:32)
[2022-04-03] MEDS: LORazepam 1 MG TAB PO PRN (11:20)
== END 2022-04-03 11:55 | disposition hospice, home (50) | DRG 871 ==
LOC: M ED 11:28 → M ED INP 17:03 → ENRESERVDT 17:08 → ENRESERVTM 17:08 → M PCU 19:00 → M ICU 20:05 → M MS5PR 03-31 14:30
PROVIDERS: ADMIT General Practice; ATTEND Internal Medicine
PROC: 02HV33Z Insertion of Infusion Device into Superior Vena Cava, Percutaneous Approach (ICD-10-PCS; 2022-03-26)
PROC: B246ZZZ Ultrasonography of Right and Left Heart (ICD-10-PCS; 2022-03-27)
PROC: 02HV33Z Insertion of Infusion Device into Superior Vena Cava, Percutaneous Approach (ICD-10-PCS; principal; 2022-03-28 15:30)
DX: A40.3 Sepsis due to Streptococcus pneumoniae (principal); R65.21 Severe sepsis with septic shock; K76.7 Hepatorenal syndrome; R57.1 Hypovolemic shock; K65.2 Spontaneous bacterial peritonitis; D68.9 Coagulation defect, unspecified; K76.6 Portal hypertension; E87.1 Hypo-osmolality and hyponatremia; E87.2 Acidosis; E72.20 Disorder of urea cycle metabolism, unspecified; N17.9 Acute kidney failure, unspecified; Z66 Do not resuscitate; K70.31 Alcoholic cirrhosis of liver with ascites; B19.20 Unspecified viral hepatitis C without hepatic coma; I86.4 Gastric varices; I86.8 Varicose veins of other specified sites; D69.6 Thrombocytopenia, unspecified; F17.210 Nicotine dependence, cigarettes, uncomplicated; E03.9 Hypothyroidism, unspecified; G62.9 Polyneuropathy, unspecified; E16.2 Hypoglycemia, unspecified; M25.551 Pain in right hip; M25.552 Pain in left hip; K70.11 Alcoholic hepatitis with ascites; I12.9 Hypertensive chronic kidney disease with stage 1 through stage 4 chronic kidney disease, or unspecified chronic kidney disease; E87.6 Hypokalemia; E83.42 Hypomagnesemia; D64.9 Anemia, unspecified; N52.9 Male erectile dysfunction, unspecified; E88.09 Other disorders of plasma-protein metabolism, not elsewhere classified; Z20.822 Contact with and (suspected) exposure to COVID-19; E86.0 Dehydration; F10.20 Alcohol dependence, uncomplicated; Z79.899 Other long term (current) drug therapy; E83.51 Hypocalcemia; R60.1 Generalized edema; K72.90 Hepatic failure, unspecified without coma; N18.9 Chronic kidney disease, unspecified